=== PATIENT | female | born 1980 | race Caucasian/White ===

== ENCOUNTER 2023-08-20 10:20 | Emergency (ER) | payer OTHER, SELFPAY ==
[2023-08-20 11:02] VITALS: BP 163/97; PULSE 107; RESP 16; TEMP 36.6; O2SAT 100
--- NOTE | 2023-08-20 11:56 | ED.ABDPAIN ---
HPI - Abdominal Pain General Chief Complaint: Abdominal Pain Stated Complaint: Abdominal Pain Source: patient Mode of arrival: ambulatory Limitations: no limitations History of Present Illness HPI narrative: Patient presents for evaluation of abdominal pain. Symptom onset yesterday. She does not provide a descriptive quality or numerical rating to the pain. She reports associated distension and bloating. She had nausea and vomiting yesterday morning but none since that time. She had an episode of diarrhea yesterday another episode today. No blood or mucus in the stool. She has never formally been diagnosed with IBS but suspects that she has it. Monday night she ate some spicy chicken tenders and suspected she would have heartburn thereafter so took pepcid. She denies any fever, chills, urinary symptoms, vaginal bleeding or discharge. She admits to consuming four vodka containing beverages daily. Related Data Home Medications Medication Instructions Recorded Confirmed No Home Medications 08/20/23 Allergies Allergy/AdvReac Type Severity Reaction Status Date / Time No Known Allergies Allergy Verified 08/20/23 11:24 Review of Systems Review of Systems: CONSTITUTIONAL: Denies fever, chills, or sweats. EYES: Denies visual changes, redness, or discharge. ENT: Denies rhinorrhea, congestion, sore throat, or otalgia. CARDIOVASCULAR: Denies chest pain, palpitations, or edema. RESPIRATORY: Denies cough or dyspnea. GASTROINTESTINAL: reports abdominal pain, distention, bloating, diarrhea. Reports nausea and vomiting yesterday but none since that time. GENITOURINARY: Denies dysuria or hematuria. SKIN: Denies rash or itching. MUSCULOSKELETAL: Denies back pain, joint pain, or myalgia. NEUROLOGIC: Denies headache, numbness, dizziness, or weakness. PSYCHIATRIC: Denies anxiety or depression. [facility] Past Medical History Medical History No pertinent past medical history Surgical History Surgical History No pertinent past surgical history Family History Family History Mother Family history non-contributory Social History Social History Smoking status: Current every day smoker Tobacco type: e-cigarettes/vaping Alcohol intake: current Drinks per week: 28 Alcohol use details: vodka Substance use: current Substance use type: marijuana Living arrangements: with family Gender identity (if verbalized by the patient): Female Sexual Orientation (if Verbalized by the Patient): Straight or Heterosexual Spiritual care concerns: No Exam Narrative: GENERAL: Well-appearing, well-nourished, and in no acute distress. HEAD: Normocephalic, atraumatic. EYES: PERRLA and EOMI. ENT: Nares clear, no rhinorrhea or epistaxis. Mucous membranes moist. Oropharynx without tonsillar hypertrophy exudate or other lesions. Bilateral TMs pearly parra nonbulging NECK: Supple. No adenopathy or masses. No carotid bruits or JVD CHEST: Clear to auscultation. No respiratory distress. No wheezes rales or rhonchi HEART: Regular rate and rhythm. No murmur heard. Normal peripheral pulses. ABDOMEN: Soft, distended, diffuse tenderness without rebound or guarding EXTREMITIES: Normal range of motion. No edema. SKIN: Warm, dry, no rash. NEURO: No focal deficits. Alert and oriented x3. PSYCH: Normal mood and affect. Course Course Emergency Course: This is a 42-year-old female who presented for evaluation of abdominal pain, distension, and bloating. Patient would benefit from serum labs and CT imaging. Recommended she be transferred to the hospital for further evaluation. Contacted [facility], her facility of choice, and spoke with nurse practitioner Gallito Martinez.
== END 2023-08-20 11:50 | disposition short-term general hospital (02) ==
PROVIDERS: Emergency Provider Nurse Practitioner
DX: R10.9 Unspecified abdominal pain (principal); F17.290 Nicotine dependence, other tobacco product, uncomplicated; F12.90 Cannabis use, unspecified, uncomplicated
CPT/HCPCS: 81003; 87086; 99213; G0463

== ENCOUNTER 2023-08-20 12:06 | Inpatient (IN) | payer OTHER, SELFPAY ==
--- NOTE | ~2023-08-20 | US_ITS ---
EXAMINATION: US pelvic complete w TV DATE: 08/20/2023 18:19 INDICATION: TOA TECHNIQUE: Multiple transabdominal and endovaginal sonographic images of the pelvis were obtained. COMPARISON: CT abdomen pelvis, same date. FINDINGS: Uterus: 9.0 x 4.7 x 6.5 cm. 7.3 cm pedunculated fibroid projecting off the right side of the uterus. Intramural fibroid in the left uterus measuring 4.8 cm, discrete measurement difficult due to the deg ree of shadowing fibroid measuring up to 6.7 cm in the prior CT. Endometrial complex measures 16 mm. Right Ovary: 3.5 x 2.1 x 3.6, more confidently identified in this scan and than in the prior CT altho ugh there is somewhat limited visualization due to obscuration by the adjacent fibroid . The peripher ally enhancing tubular/serpiginous right adnexal structure seen in the prior CT is less well visualiz ed sonographically. Vascular flow is present. Left Ovary: The left ovary is not well visualized. Cystic 6.9 cm left adnexal/pelvic structure, with an adjacent tubular structure. Both have peripheral enhancement in the prior CT. Vascular flow is pre sent. There is trace free fluid in the pelvis. IMPRESSION: Sonographic and CT findings likely represent tubo-ovarian abscess on the left and tubo-ovarian comple x on the right. Large pedunculated and intramural fibroids. Reviewed, dictated and finalized at location [facility] IMPRESSION: Sonographic and CT findings likely represent tubo-ovarian abscess on the left a nd tubo-ovarian complex on the right. Large pedunculated and intramural fibroids.
--- NOTE | ~2023-08-20 | CT_ITS ---
EXAMINATION: CT abdomen pelvis w con INDICATION: Abdominal bloating and pain TECHNIQUE: Computed tomographic images of the abdomen and pelvis were obtained after the administrati on of 100 cc of Omnipaque 350 intravenous contrast. The dose-length product (DLP) was 272.52 mGy-cm. Automated exposure control and iterative reconstruction technique were employed. COMPARISON: None available FINDINGS: The lung bases are clear. The heart size is normal. There is a small sliding hiatal hernia. The liver, spleen, pancreas, gallbladder, and adrenal glands are normal. The kidneys are unremarkabl e. There is an 8.7 cm fluid collection of the left adnexa. There is fluid within the left fallopian t ube. There is a 4.2 cm fluid collection of the right adnexa with fluid also noted in the right fallop satish tube. There is an approximately 6.2 cm intramural fibroid of the left uterine body. There is a 6. 9 cm pedunculated fibroid of the right uterine fundus. The appendix is normal. IMPRESSION: 1. Findings concerning for bilateral tubo-ovarian abscesses. Recommend [facility] PROF[facility]OR consultation and consider pelvic ultrasound. Reviewed, dictated and finalized at location [facility] IMPRESSION: 1. Findings concerning for bilateral tubo-ovarian abscesses. Recommend BOTANY PROFESSOR cons ultation and consider pelvic ultrasound.
[2023-08-20 12:07] VITALS: BP 140/87; PULSE 104; RESP 18; TEMP 36.6; O2SAT 100
--- NOTE | 2023-08-20 12:24 | ED.ABDPAIN ---
HPI - Abdominal Pain General Chief Complaint: Abdominal Pain Stated Complaint: abdominal pain Time Seen by Provider: 08/20/23 12:12 History of Present Illness HPI narrative: 42-year-old female presented to the emergency department for evaluation of abdominal pain with associated bloating. Patient states symptoms started yesterday. Patient states he did have an episode of diarrhea last night and this morning. Patient reports this did not help with bloating. Patient denies any prior history of abdominal surgeries other than umbilical hernia repair. 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 Patient has no prior history of cirrhosis but states when she had her last labs checked she did have some ?elevated liver enzymes ?. Related Data Home Medications Medication Instructions Recorded Confirmed No Home Medications 08/20/23 08/20/23 Allergies Allergy/AdvReac Type Severity Reaction Status Date / Time No Known Allergies Allergy Verified 08/20/23 12:44 Review of Systems Review of Systems: All systems reviewed & are unremarkable except as noted in HPI and below PMFSH Past Medical History Medical History No pertinent past medical history Surgical History Surgical History No pertinent past surgical history Family History Family History Mother Family history non-contributory Social History Social History Smoking status: Current every day smoker Tobacco type: e-cigarettes/vaping Alcohol intake: current Drinks per week: 21 Alcohol use details: vodka Substance use: current Substance use type: marijuana Do You Feel Safe in your Home?: Yes Lack of Transportation: No Lack of Food: Never True Current Housing: I Have Housing Concerned About Future Housing: No Difficulty Paying Gas/Electric Bills: No Difficulty Paying for Meds: No Currently Unemployed: No Education: Decline to Answer Difficulty w/ Childcare or Family Care: No Living arrangements: with family Gender identity (if verbalized by the patient): Female Sexual Orientation (if Verbalized by the Patient): Straight or Heterosexual Spiritual care concerns: No Exam Narrative: APPEARANCE: Uncomfortable appearing HEAD: normocephalic, atraumatic. EYES: PERRLA/EOMI, conjunctivae clear. NOSE: Normal no drainage NECK: Supple. No adenopathy, no masses. RESPIRATORY: Airway patent, respirations nonlabored. Clear to auscultation bilaterally, no rales, rhonchi, wheezing. CARDIOVASCULAR: Regular rate and rhythm without murmurs rubs or gallops. ABDOMINAL: Distended, normal bowel sounds, minimal tenderness diffuse MUSCULOSKELETAL: Moves all extremities. Strength/ROM intact, No edema, No calf tenderness. NEURO: Alert. Cranial nerves II through XII intact. Grossly intact SKIN: Warm, dry. Normal Color Course Course Emergency Course: 42-year-old female presented emergency department for evaluation of lower abdominal pain. Patient was afebrile but patient does have a leukocytosis of 14.3 with a stable hemoglobin of 12.6. Patient did have some mild elevation of T bili, AST and ALT. UA was concerning for infection, patient was negative for influenza RSV and for COVID. CT scan was concern for bilateral tubo-ovarian abscesses. Blood cultures were ordered and patient was started on scheduled Rocephin Flagyl and doxycycline. Ultrasound was ordered and Dr. Gamble was consulted. Dr. Gamble did accept the patient as primary. Patient and family were updated on the results of the CT scan and plan for antibiotics and admission. All questions and concerns were addressed patient was well-appearing at time of admission. Vital Signs Vital signs: Vital
[2023-08-20 12:57] VITALS: BP 137/97; PULSE 108; RESP 15; O2SAT 100
[2023-08-20 12:59] LABS: Basophils Absolute Auto 0.1 K/mm3 (0.0-0.1); Basophils Percent Auto 0.6 % (0.2-1.2); Eosinophils Absolute Auto 0.1 K/mm3 (0-0.3); Eosinophils Percent Auto 0.5 % (0-4.4); Hematocrit 37.9 % (37.0-47.0); Hemoglobin 12.6 g/dL (12.0-15.0); Immature Granulocyte Percent A 0.7 % (0-0.5); Lymphocytes Absolute Auto 1.23 K/mm3 (0.9-3.2); Lymphocytes Percent Auto 8.6 % (18.3-44.2); Mean Corpuscular HGB Conc 33.2 g/dl (32-36); Mean Corpuscular Hemoglobin 33.2 pg (26-34); Mean Platelet Volume 8.9 fl (7.4-10.4); Monocytes Percent Auto 6.7 % (2.6-8.5); Neutrophils Absolute Auto 11.9 K/mm3 (1.3-6.7); Neutrophils Percent Auto 82.9 % (45.5-73.1); Platelet Count Result 245 k/mm3 (150-375); Red Blood Count 3.79 M/mm3 (4.2-5.4); Red Cell Distribution Width 13.9 % (11.5-14.5); White Blood Count 14.3 K/mm3 (4.5-10.0)
[2023-08-20 13:08] LABS: Lactic Acid Reflex 1.6 mmol/L (0.7-2.0)
[2023-08-20 13:09] LABS: Ammonia < 9 umol/L (9-30); Prothrombin Time 13.7 Seconds (11.1-14.7)
[2023-08-20 13:10] LABS: Alanine Aminotransferase 56 U/L (6-35); Albumin Level 4.3 g/dL (3.5-5.1); Alkaline Phosphatase 118 U/L (38-126); Anion Gap 10 mmol/L (8-16); Aspartate Amino Transferase 72 U/L (14-36); Bilirubin,Total 1.6 mg/dL (0.2-1.3); Blood Urea Nitrogen 8 mg/dL (7-17); Calcium 9.4 mg/dL (8.4-10.2); Carbon Dioxide 25 mmol/L (22-30); Chloride 96 mmol/L (98-107); Estimated CRCL calculation 89 ml/min; Estimated Glomerular Filt Rate > 60; Glucose 139 mg/dL (65-110); Lipase 53 U/L (23-300); Potassium 3.6 mmol/L (3.4-5.0); Sodium 131 mmol/L (137-145)
[2023-08-20 13:11] LABS: Bacteria Urine 4+ /hpf; Non Pathogenic Casts 0-2; RBC Urine 21-50 /hpf (0-2); Squamous Epithelial Cell Urine Moderate /hpf (Few)
[2023-08-20 13:17] LABS: Appearance Urine Cloudy (Clear); Bilirubin Urine 2+ (Negative); Blood Urine 2+ (Negative); Color Urine Orange (Yellow); Glucose Urine UA Negative (Negative); Ketones Urine Negative (Negative); Leukocyte Esterase Ur 1+ LEU/UL (Negative); Nitrate Urine Positive (Negative); Protein Urine 2+ mg/dL (Negative); Specific Grav Ur 1.033 (1.001-1.035)
[2023-08-20 13:22] LABS: Add Urine Microscopic? YES
[2023-08-20 13:40] LABS: Influenza A QL RT-PCR Negative (Negative); Influenza B QL RT-PCR Negative (Negative); RSV RNA, RT-PCR Negative (Negative); SARS-CoV-2 RNA PCR Negative (Negative)
[2023-08-20] MEDS: ONDANSETRON INJ 4 MG/2 ML VIAL IV PUSH ×2 (15:08→21:58)
[2023-08-20] MEDS: HYDROmorphone HCL INJ (*CRX) 1 MG/ML SYR 0.5 MG IV PUSH ×3 (15:09→23:04)
[2023-08-20] MEDS: DOXYCYCLINE 100 MG/NS 100 ML 100 MG/100 ML BAG IVPB (15:16)
[2023-08-20 15:17] VITALS: BP 127/89; PULSE 103; RESP 13; O2SAT 100
[2023-08-20] MEDS: metroNIDAZOLE 500 MG/ISO 100ML 500 MG/100 ML BAG 100 MG IVPB ×2 (15:24→21:58)
[2023-08-20 16:00] VITALS: BP 132/84; PULSE 90; RESP 16; O2SAT 9
[2023-08-20 16:10] VITALS: BMI 21.9
--- NOTE | 2023-08-20 16:10 | ADMGEN ---
This patient, Mellissa Diehl, was admitted to 3 [facility] Surg Room 310-01 @ 1610. Patient/family oriented to hospital policies and general routines including ID bracelet, bed and alarms, visiting hours, pain management, procedures, bathroom and other care routines, personal items, smoking policy, room service/diet, and visiting hours. Information on how to activate the Rapid Response Team has been discussed. Patient/Family are encouraged to report perceived risks to care and to ask questions if they do not understand what they are told or what they should do.
[2023-08-20 18:18] VITALS: BP 117/73; PULSE 107; RESP 16; TEMP 36.4; O2SAT 99
[2023-08-20 20:29] VITALS: BP 126/79; PULSE 94; RESP 16; TEMP 36.5; O2SAT 100
[2023-08-21] VITALS (14 sets, daily range): BP systolic 115–151; BP diastolic 71–95; PULSE 89–125; RESP 12–20; TEMP 35.6–36.8; O2SAT 95–100
[2023-08-21] MEDS: ONDANSETRON INJ 4 MG/2 ML VIAL IV PUSH ×2 (03:43→17:40)
[2023-08-21] MEDS: HYDROmorphone HCL INJ (*CRX) 1 MG/ML SYR 0.5 MG IV PUSH ×9 (03:44→18:10)
[2023-08-21] MEDS: DOXYCYCLINE 100 MG/NS 100 ML 100 MG/100 ML BAG IVPB ×2 (03:45→15:25)
--- NOTE | 2023-08-21 08:18 | PM.IMHP ---
H&P: HPI History of Present Illness Date/Time: 08/21/23 08:18 Chief Complaint: Abdominal and pelvic pain Narrative: this patient is a 42-year-old female who presented emergency department with abdominal and pelvic pain. The pain began 3 days ago and progressively got worse. She had some mild elevated body temperature. She presented the emergency department. She was evaluated. Imaging showed bilateral tubo-ovarian abscesses. She continues to have pelvic pain. Discussed treatment options to the patient. Discussed medications, drain placement, surgery. Patient is considering her treatment options. She will likely choose the diagnostic laparoscopy with draining of tubo-ovarian abscesses. The procedure was explained to the patient in great detail. we spent over 40 minutes [id number]. More than 50% was counseling. Made decision to perform surgery. Patient understands the procedure. She understands the risk. She understands that injuries may occur that result in hospitalization, more surgery, and severe illness. She understands risk of hemorrhage and infection. To proceed with Laparoscopic drainage of tubo-ovarian abscess. She understands risks, benefits, and alternatives. She has completed informed consent process and is ready to proceed Review of Systems Review of Systems: All systems reviewed & are unremarkable except as noted in HPI and below Constitutional: Constitutional: Denies chills, Denies fatigue, Denies fever(s) and Denies weakness Eyes: Eyes: Denies blurry vision, Denies change in vision, Denies loss of peripheral vision, Denies loss of vision, Denies other visual disturbances and Denies eye pain ENT: Denies vertigo, Denies dizziness, Denies hearing loss, Denies mouth pain, Denies nasal obstruction, Denies neck mass and Denies neck pain Cardiovascular: Cardiovascular: Denies chest pain, Denies diaphoresis, Denies syncope, Denies leg edema and Denies dyspnea Respiratory: Respiratory: Denies chest congestion, Denies cough, Denies hemoptysis, Denies dyspnea and Denies wheezing Gastrointestinal: Gastrointestinal: Denies abdominal pain, Denies constipation, Denies diarrhea, Denies nausea and Denies vomiting Genitourinary: Genitourinary: Denies hematuria, Denies change in libido, Denies nocturia, Denies genital lesions, Denies flank pain and Denies urinary urgency Musculoskeletal: Musculoskeletal: Denies abnormal gait, Denies back pain, Denies myalgias, Denies arthralgias, Denies joint swelling, Denies muscle weakness and Denies neck pain Integumentary/Breasts: Skin/Breast: Denies swelling, Denies breast pain, Denies breast mass, Denies dry skin, Denies nipple discharge, Denies unusual bruising and Denies jaundice Neurologic: Denies Neuro-related abnormal movements, Denies Abnormal speech present, Denies abnormal gait, Denies behavioral changes, Denies confusion, Denies vertigo, Denies dizziness, Denies syncope, Denies loss of vision, Denies memory loss, Denies convulsions and Denies weakness Psychiatric: Psychiatric: Denies abnormal sleep pattern, Denies behavioral changes, Denies change in libido, Denies confusion, Denies depression, Denies anhedonia and Denies memory loss Endocrine: Endocrine: Reports no additional endocrine complaints, Denies change in libido and Denies fatigue Hematologic/Lymphatic: Hematologic/Lymphatic: Reports no additional hematologic/lymphatic complaints Allergic/Immunologic: Allergic/Immunologic: Reports no additional allergic/immunologic complaints and Denies wheezing [facility] Past Medical History Medical History No pertinent past medical history Surgical History Surgical History No pertinent past surgical history Family History Family History Mother Family history non-contributory Social History Social
[2023-08-21] MEDS: metroNIDAZOLE 500 MG/ISO 100ML 500 MG/100 ML BAG 100 MG IVPB ×2 (09:48→20:56)
--- NOTE | 2023-08-21 15:16 | WPDANESEPPF ---
Anes - Initial Pre Proc Eval Procedure: Operation Date: 08/21/23 17:00 Proposed Procedures p Laparoscopic Drainage of Pelvic Abscess - Selma Gamble MD Date/Time: 08/21/23 15:16 Surgeon: Selma Gamble MD Pre Op Diagnosis: Tubo Ovarian Abscess Patient Data Age: 42 Gender: F Height: 1.7 m Weight: 63.5 kg Last Vital Signs Temp 35.7 C L 08/21/23 14:00 Pulse 89 08/21/23 14:00 Resp 16 08/21/23 14:00 BP 115/72 08/21/23 14:00 Pulse Ox 100 08/21/23 14:00 O2 Del Method Room Air 08/21/23 09:12 Allergies Allergy/AdvReac Type Severity Reaction Status Date / Time No Known Allergies Allergy Verified 08/20/23 12:44 Home Medications Medication Instructions Recorded Confirmed Type No Home Medications 08/20/23 08/20/23 History Patient hx anesthesia problems: none Family hx anesthesia problems: none Results Review: All pre-operative results and documents have been reviewed as part of the pre-operative evaluation. [facility] Past Medical History Medical History No pertinent past medical history Surgical History Surgical History No pertinent past surgical history Family History Family History Mother Family history non-contributory Social History Social History Smoking status: Current every day smoker Tobacco type: e-cigarettes/vaping Alcohol intake: current Drinks per week: 21 Alcohol use details: vodka Substance use: current Substance use type: marijuana Do You Feel Safe in your Home?: Yes Lack of Transportation: No Lack of Food: Never True Current Housing: I Have Housing Concerned About Future Housing: No Difficulty Paying Gas/Electric Bills: No Difficulty Paying for Meds: No Currently Unemployed: No Education: Decline to Answer Difficulty w/ Childcare or Family Care: No Living arrangements: with family Gender identity (if verbalized by the patient): Female Sexual Orientation (if Verbalized by the Patient): Straight or Heterosexual Spiritual care concerns: No Anes - Eval Final PreProcedure Day of Procedure 08/21/23 15:16 Patient weight: normal Heart: regular rate and rhythm Lungs: clear to auscultation Airway: Mallampati scale class II Neurological: alert and oriented Last oral intake: >/= 8 hours ASA classification: II Emergent: no Anesthetic plan: proceed Anesthesia type and monitoring: general ETT and standard monitoring Results Review: All pre-operative results and documents have been reviewed as part of the pre-operative evaluation. Informed Consent: The patient's anesthetic plan and its attendant risks and benefits were discussed with the patient/family/POA. Questions were solicited and answers provided to the satisfaction of the patient/family/POA.
[2023-08-21] MEDS: LACTATED RINGERS 1,000 ML 30 ML IV CONT ×2 (15:20→17:26)
--- NOTE | 2023-08-21 15:21 | WPDHPUPDATE1 ---
History and Physical Update Update Date/Time: 08/21/23 15:21 History and Physical has been reviewed, including an updated exam of the patient. There are NO changes in the patient's condition. Risks, benefits, and alternatives have been discussed and questions answered. Patient agrees to proceed with procedure.
[2023-08-21] MEDS: CELLULOSE OXIDIZED 2 x 14 INCH 1 PKT XX (16:52)
--- NOTE | 2023-08-21 17:39 | P.OP_ITS ---
Procedure Note - Detailed Date of Procedure 08/21/23 Pre-op Diagnosis bilateral Tubo Ovarian Abscess, uterine myoma Post-op Diagnosis Same Procedure Performed Diagnostic laparoscopy, open laparotomy bilateral salpingectomy and myomectomy Surgeon Selma Gamble MD Anesthesia General Indications Pelvic pain , tubo-ovarian abscesses Findings large pedunculated uterine fibroid emanating from the fundus, 7 cm left tubo- ovarian abscess, 30 cm x 5 cm right tubo-ovarian abscess. Description of Procedure The patient was taken to the operating room. She was prepped and draped in the dorsal lithotomy position after induction general anesthesia. A 5 mm incision was made with a scalpel on the abdominal skin in the left upper quadrant of the abdomen. A 5 mm trocar was inserted into the intra-abdominal cavity under direct visualization the scope. In the same fashion a 5 mm left lower quadrant trocar was inserted and a 5 mm infraumbilical trocar was inserted. the above findings were noted upon visualization of this. Abscesses could not be seen initially due to their position low in the pelvis. Pelvis could not be visualized with the fibroid positions were was. The uterus was very immobile due to the fibroid and the abscesses attempt was made to remove the fibroid. The stalk the fibroid was cauterized and transected with LigaSure cautery. The cut surface of the uterus began to bleed. Several minutes were spent trying to stop the bleeding. They are worse open sinuses on the surface of the uterus that were difficult to take care of. After several minutes to using unipolar cautery without much success we agreed open the patient. Laparotomy was performed. Pneumoperitoneum was reduced and the trocars removed. Skin incision was made 3 cm above the pubic symphysis. Was a transverse incis ion using scalp on the skin. It was carried down low to the fascia with the knife. Fascia was incised at the midline. The fascial incision was extended lateral with Naranjo scissors. The rectus muscles were . Peritoneal cavity was entered bluntly. The bowel was packed in the upper abdomen and a bowel for tractor was inserted. blunt dissection was used to isolate the bilateral fallopian tubes that were removed using LigaSure cautery. Multiple [id number] sutures were used on the uterus to make it hemostatic. Uterus was returned to the abdomen. The fibroid was removed along with fallopian tube since the pathology department. The pelvis was irrigated. Fascia was closed with 0 Vicryl running fashion. Skin was closed with Insorb stapler.. The patient's incisions were covered with Dermabond. She was taken recovery room in stable condition. Sponge lap and needle counts were correct x2. Estimated Blood Loss 400 Urine Output 0 Pathology Yes Complications No immediate complications Condition Stable Disposition Floor
[2023-08-21] MEDS: HYDROmorphone HCL INJ (*CRX) 1 MG/ML SYR IV PUSH ×2 (20:49→23:32)
[2023-08-21] MEDS: PROMETHAZINE HCL 25 MG/ML AMPUL 12.5 MG IV PUSH (20:49)
[2023-08-22] MEDS: HYDROcodone/acetaminophen (*CRX) 10-325 MG TABLET 1 TAB PO ×4 (00:18→21:54)
[2023-08-22] MEDS: DOXYCYCLINE 100 MG/NS 100 ML 100 MG/100 ML BAG IVPB ×2 (03:31→15:19)
[2023-08-22 05:55] VITALS: BP 141/75; PULSE 92; RESP 16; TEMP 36.6; O2SAT 92
[2023-08-22] MEDS: SIMETHICONE 80 MG TAB.CHEW PO ×3 (08:09→17:03)
[2023-08-22] MEDS: HYDROmorphone HCL INJ (*CRX) 1 MG/ML SYR IV PUSH ×2 (08:09→13:47)
[2023-08-22] MEDS: metroNIDAZOLE 500 MG/ISO 100ML 500 MG/100 ML BAG 100 MG IVPB ×2 (09:44→21:55)
--- NOTE | 2023-08-22 10:53 | PM.GYNPNOP ---
POCKET AND PULLEY MACHINE OPERATOR - A/P Assessment and plan (1) Tubal ovarian abscess: Code(s): N70.93 - Salpingitis and oophoritis, unspecified Status: Acute (2) Pelvic inflammatory disease: Code(s): N73.9 - Female pelvic inflammatory disease, unspecified Status: Acute Plan improved overall, incisional pain but improved pelvic pain and malaise. Patient appears very well. Postoperative Procedures: Procedures Operation Date: 08/21/23 17:00 Actual Procedure Side Surgeon p Diagnostic Laparoscopy, Open Bilateral Salpingectomy, Myomectomy Not Applicable Selma Gamble MD Postoperative day: 1 Postoperative status: doing well Postoperative plan: see orders Time Spent With Patient Time: Total time spent is greater than 50% in coordination of care (as documented) at patient's floor/unit and/or counseling patient: Time with patient: 15 - 25 minutes POCKET AND PULLEY MACHINE OPERATOR- PN:Kang Post-Op Subjective Date/time seen: 08/22/23 10:53 Subjective: patient reports feeling better, patient has no complaints and pain is well controlled Exam Const: General: healthy appearing, comfortable and no acute distress Resp: Auscultation: clear to auscultation bilaterally, no rales, no rhonchi and no wheezes Cardio: Rate: regular rate Heart sounds: no click, no murmurs and no rubs GI: Inspection: non-distended Auscultation: normal bowel sounds Extrem: General: normal to inspection, no pedal edema and no calf tenderness POCKET AND PULLEY MACHINE OPERATOR - PN: Obj Data Vital Signs Vital Signs: Vital Signs - 24 hr 08/21/23 14:00 08/21/23 15:25 08/21/23 17:26 Temperature 96.2 F L 98.3 F 97.4 F L Pulse Rate 89 93 97 Respiratory Rate 16 16 18 Blood Pressure 115/72 136/71 151/95 H Pulse Oximetry 100 100 100 Oxygen Delivery Room Air Simple Face Mask Oxygen Flow Rate 8 08/21/23 17:40 08/21/23 17:45 08/21/23 17:55 Temperature Pulse Rate 95 97 Respiratory Rate 12 14 Blood Pressure 138/76 131/86 Pulse Oximetry 100 96 Oxygen Delivery Simple Face Mask Room Air Room Air Oxygen Flow Rate 8 08/21/23 18:10 08/21/23 18:25 08/21/23 18:36 Temperature Pulse Rate 94 95 95 Respiratory Rate 12 12 12 Blood Pressure 134/81 132/77 123/86 Pulse Oximetry 99 95 96 Oxygen Delivery Room Air Room Air Room Air Oxygen Flow Rate 08/21/23 18:45 08/21/23 19:04 08/21/23 22:00 Temperature 96.0 F L 97.7 F Pulse Rate 122 H 125 H 96 Respiratory Rate 20 20 20 Blood Pressure 132/95 H 121/91 H 121/82 Pulse Oximetry 99 100 100 Oxygen Delivery Oxygen Flow Rate 08/21/23 23:57 08/21/23 20:00 08/22/23 05:55 Temperature 97.8 F 97.8 F Pulse Rate 105 H 92 Respiratory Rate 20 16 Blood Pressure 142/86 H 141/75 H Pulse Oximetry 100 100 92 Oxygen Delivery Room Air Oxygen Flow Rate Intake/Output Intake/Output: Intake & Output 08/19/23 08/20/23 08/21/23 08/22/23 23:59 23:59 23:59 23:59 Intake Total 650 950 400 Output Total 700 290 325 Balance -50 660 75 Meds/Results Medications: Active Medications Generic Name Dose Route Start Last Admin Trade Name Freq PRN Reason Stop Dose Admin Hydrocodone Bitart/Acetaminophen 1 tab 08/21/23 18:37 Hydrocodone/Acetaminophen (*Crx) 5-325 Mg Tablet PO Q3H PRN Pain Rated 5 or Less Hydrocodone Bitart/Acetaminophen 1 tab 08/21/23 18:37 08/22/23 09:18 Hydrocodone/Acetaminophen (*Crx) 10-325 Mg Tablet PO 1 tab Q3H PRN Administration Pain Rated 6 or Greater Hydromorphone HCl 1 mg 08/21/23 20:41 08/22/23 08:09 Hydromorphone Hcl Inj (*Crx) 1 Mg/Ml Syr IV PUSH 1 mg Q2H PRN Administration Pain Rated 7-10 Ceftriaxone Sodium 1 gm in 50 mls @ 100 mls/hr 08/21/23 09:00 08/22/23 08:52 Rocephin 1 Gm/Ns 50 Ml IVPB 100 mls/hr DAILY SU Administration Metronidazole 500 mg in 100 mls @ 100 mls/hr 08/20/23 22:00 08/22/23 09:44 Flagyl 500 Mg/Iso Soln 100 Ml IVPB 100 mls/hr Q12H SU Administration Doxycycline Hyclate 100 mg in 100 mls @ 100 mls/hr
--- NOTE | 2023-08-22 11:09 | WPDANESPN ---
Anes - Prog Note Post-Op Date/Time: 08/22/23 11:09 Cardiovascular status: normal Respiratory status: normal Airway patency: baseline Mental status: baseline Post-Op hydration status: normal Vital Signs: Last Vital Signs Temp 36.6 C 08/22/23 05:55 Pulse 92 08/22/23 05:55 Resp 16 08/22/23 05:55 BP 141/75 H 08/22/23 05:55 Pulse Ox 92 08/22/23 05:55 O2 Del Method Room Air 08/21/23 20:00 O2 Flow Rate 8 08/21/23 17:40 Pain Score (VAS): 0/10 I/O: Intake & Output 08/21/23 08/22/23 08/22/23 23:59 07:59 15:59 Intake Total 600 400 Output Total 70 325 Balance 530 75 Laboratory Tests 08/20/23 12:51 08/20/23 12:51 Microbiology 08/20/23 14:56 Blood Blood Culture - Preliminary 08/20/23 14:54 Blood Blood Culture - Preliminary Post-procedural complaints: nausea (resolved) Patient Feedback: Patient satisfied with anesthetic care.
[2023-08-22 14:00] VITALS: BP 128/67; PULSE 103; RESP 16; TEMP 36.6; O2SAT 100
[2023-08-22 20:00] VITALS: PULSE 96; RESP 16; O2SAT 92
[2023-08-22 21:08] VITALS: BP 125/78; PULSE 96; RESP 16; TEMP 36.2; O2SAT 92
[2023-08-23] MEDS: DOXYCYCLINE 100 MG/NS 100 ML 100 MG/100 ML BAG 50 MG IVPB (03:34)
[2023-08-23] MEDS: HYDROcodone/acetaminophen (*CRX) 10-325 MG TABLET 1 TAB PO (03:34)
[2023-08-23 06:24] VITALS: BP 118/67; PULSE 95; RESP 18; TEMP 36.7; O2SAT 99
[2023-08-23 08:00] VITALS: PULSE 95; RESP 18; O2SAT 99
[2023-08-23] MEDS: SIMETHICONE 80 MG TAB.CHEW PO (09:18)
[2023-08-23] MEDS: HYDROcodone/acetaminophen (*CRX) 5-325 MG TABLET 1 TAB PO (09:18)
[2023-08-23] MEDS: metroNIDAZOLE 500 MG TABLET PO (10:38)
[2023-08-23] MEDS: DOXYCYCLINE HYCLATE 100 MG TABLET PO (10:38)
--- NOTE | 2023-08-23 11:26 | PM.GYNPNOP ---
SAMPLE TAKER OPERATOR - A/P Assessment and plan (1) Pelvic inflammatory disease: Code(s): N73.9 - Female pelvic inflammatory disease, unspecified Status: Acute (2) Postoperative abdominal pain: Code(s): R10.9 - Unspecified abdominal pain; G89.18 - Other acute postprocedural pain Status: Acute Assessment and Plan: pelvic inflammatory disease, tubo-ovarian abscess, treated several days with IV antibiotics, infection appears to be resolving by clinical signs and symptoms. To discharge on oral antibiotics. Postoperative Procedures: Procedures Operation Date: 08/21/23 17:00 Actual Procedure Side Surgeon p Diagnostic Laparoscopy, Open Bilateral Salpingectomy, Myomectomy Not Applicable Selma Gamble MD Time Spent With Patient Time: Total time spent is greater than 50% in coordination of care (as documented) at patient's floor/unit and/or counseling patient: Time with patient: less than 15 minutes SAMPLE TAKER OPERATOR- PN:Subj Post-Op Subjective Date/time seen: 08/23/23 11:26 Interval history: Incisional pain, consistent with normal low-transverse incision pain. Denies fever chills. No vaginal bleeding. No vaginal discharge. Exam Const: General: cooperative, healthy appearing, comfortable and no acute distress Orientation/consciousness: oriented to person, oriented to place and oriented to time HENMT: Head: normal to inspection Ears: external ears normal Face/Nose/Sinus: Normal external nose present and normal facial exam Face and sinus: normal facial exam Eyes: General: appearance normal, both eyes and all related structures Neck: Neck: normal visual inspection, trachea midline and supple Resp: Auscultation: clear to auscultation bilaterally, no crackles, no rales, no rhonchi and no wheezes Cardio: Rate: regular rate Rhythm: regular rhythm Heart sounds: no click, no murmurs and no rubs GI: GI Palp: No abdominal tenderness, No Soft to palpation, No Tenderness to palpation present (GI) and No Palpable mass present Auscultation: normal bowel sounds Other: Incisional tenderness Skin: General skin exam: normal color and no rashes or lesions noted Neuro: General: oriented to person, oriented to place and oriented to time Extrem: General: normal to inspection, no joint enlargement, no clubbing, cyanosis or edema, no pedal edema and no calf tenderness Psych: Appearance: grossly normal Mental Status: mental status grossly normal Speech and movement: Normal speech and movement present SAMPLE TAKER OPERATOR - PN: Obj Data Vital Signs Vital Signs: Vital Signs - 24 hr 08/22/23 14:00 08/22/23 21:08 08/22/23 20:00 Temperature 97.9 F 97.2 F L Pulse Rate 103 H 96 96 Respiratory Rate 16 16 16 Blood Pressure 128/67 125/78 Pulse Oximetry 100 92 92 Oxygen Delivery Room Air 08/23/23 06:24 Temperature 98.1 F Pulse Rate 95 Respiratory Rate 18 Blood Pressure 118/67 Pulse Oximetry 99 Oxygen Delivery Intake/Output Intake/Output: Intake & Output 08/20/23 08/21/23 08/22/23 08/23/23 23:59 23:59 23:59 23:59 Intake Total 877 770 8982 100 Output Total 700 290 745 Balance -50 660 725 100 Meds/Results Medications: Active Medications Generic Name Dose Route Start Last Admin Trade Name Freq PRN Reason Stop Dose Admin Hydrocodone Bitart/Acetaminophen 1 tab 08/21/23 18:37 08/23/23 09:18 Hydrocodone/Acetaminophen (*Crx) 5-325 Mg Tablet PO 1 tab Q3H PRN Administration Pain Rated 5 or Less Hydrocodone Bitart/Acetaminophen 1 tab 08/21/23 18:37 08/23/23 03:34 Hydrocodone/Acetaminophen (*Crx) 10-325 Mg Tablet PO 1 tab Q3H PRN Administration Pain Rated 6 or Greater Doxycycline Hyclate 100 mg 08/23/23 11:00 08/23/23 10:38 Doxycycline Hyclate 100 Mg Tablet PO 09/02/23 21:01 100 mg Q12HR SU Administration Hydromorphone HCl 1 mg 08/21/23 20:41 08/22/23 13:47 Hydromorphone Hcl Inj (*Crx) 1 Mg/Ml Syr IV PUSH 1 mg Q2H PRN Administration Pain Rated 7-10 Ibupr
--- NOTE | 2023-08-23 11:31 | PM.DS ---
DS: Admitting Diagnosis Discharge Date July 23, 2023 Admitting Diagnosis pelvic inflammatory disease, tubo-ovarian abscess DS: Discharge Diagnosis Discharge Diagnosis (1) Pelvic inflammatory disease: Code(s): N73.9 - Female pelvic inflammatory disease, unspecified Status: Acute (2) Tubal ovarian abscess: Code(s): N70.93 - Salpingitis and oophoritis, unspecified Status: Acute (3) Postoperative abdominal pain: Code(s): R10.9 - Unspecified abdominal pain; G89.18 - Other acute postprocedural pain Status: Acute DS: Summary Hospital Course Hospital Course: 42-year-old female who was admitted for tubo-ovarian abscess and pelvic inflammatory disease. She had an open surgery for removal of the tubo-ovarian abscess. She also had myomectomy that procedure. She has received IV antibiotics since admission. She has now been treated for 4 days with IV antibiotics. Oral antibiotics been started. We will discharge the patient. She has reasonable postoperative pain. She is passing flatus and tolerating p.o.. She was ambulating tolerating p.o. passing flatus at appropriate times during her stay. Her pain was managed well. Time Spent with Patient Time attestation: Total time spent providing and/or coordinating discharge services: DS: Data Data Completed and Pending Completed studies during hospitalization: Pending at discharge 08/21/23 16:39 Surgical [PTH] Routine Surgical [PTH] Routine Labs on day of discharge: Preliminary micro results at discharge 08/20/23 14:56 Blood Culture - Preliminary Blood 08/20/23 14:54 Blood Culture - Preliminary Blood Discharge Plan Discharge Discharging Clinician: Selma Gamble Patient Disposition: Home, Self-Care Activity: pelvic rest Diet: regular Patient Instructions: Antibiotic Form, How to Stop Smoking (DC) Stand Alone Forms: General Discharge Information Follow-up/Referrals: Selma Gamble MD [Physician] - Discharge Medications: New hydrocodone-acetaminophen 5-325 mg Tablet 2 tablet PO Q3H PRN (Reason: Pain Rated 5 Or Less) Qty: 20 0RF doxycycline hyclate 100 mg Tablet 100 mg PO Q12HR Qty: 28 0RF metronidazole 500 mg Tablet 500 mg PO Q12HR Qty: 28 0RF No Action No Home Medications Date of admission: 08/21/23 09:45 Primary Care Provider: PHYSICIAN NOT ON STAFF,NONSTAFF Admitting Provider: Selma Gamble Attending physician on admission: Selma Gamble Condition: Serious
== END 2023-08-23 12:50 | disposition home or self-care (01) | DRG 743 ==
LOC: ANHED 13:06 → ANH3MEDSUR 15:39
PROVIDERS: Admitting Provider Obstetrics & Gynecology; Emergency Provider Emergency Medicine; Visit Provider Obstetrics & Gynecology
PROC: 0UT70ZZ Resection of Bilateral Fallopian Tubes, Open Approach (ICD-10-PCS; CPT 49320; principal; 2023-08-21 17:00)
DX: N70.03 Acute salpingitis and oophoritis (principal); D25.9 Leiomyoma of uterus, unspecified; F17.290 Nicotine dependence, other tobacco product, uncomplicated; Z20.822 Contact with and (suspected) exposure to COVID-19
CPT/HCPCS: 36415; 74177; 76830; 76856; 80053; 81001; 81003; 81025; 82140; 83605; 83690; 85025; 85610; 85730; 87040; 87086; 87637; 88302; 88305; 96365; 96367; 96375; 99213; 99285; A9270; C1713; G0463; J0696; J1100; J1170; J1836; J2250; J2405; J2550; J2704; J3010; J7120; Q9967

== ENCOUNTER 2025-04-08 07:56 | Emergency (ER) | payer OTHER, SELFPAY ==
[2025-04-08] VITALS (13 sets, daily range): BP systolic 127–140; BP diastolic 84–92; PULSE 61–94; RESP 9–19; TEMP 36.4; O2SAT 97–100
--- NOTE | ~2025-04-08 | US_ITS ---
EXAMINATION: US pelvic complete w TV DATE: 04/08/2025 12:14 INDICATION: Painful right ovarian mass TECHNIQUE: Multiple transabdominal and endovaginal sonographic images of the pelvis were obtained. COMPARISON: CT dated 04/08/[address] and ultrasound dated 08/18/23 FINDINGS: The uterus measures 8.2 x 6.4 x 8.8 cm. The endometrial complex measures 7 mm in thickness. 5.9 x 5.6 x 5.2 cm heterogeneously hypoechoic uterine fibroid. There is additional approximately 2.1 x 1.7 cm fibroid at the lower uterine segment. The right ovary measures 6.5 x 5.8 x 4.6 cm. There is a 6.4 x 4.5 x 4.0 cm complex right ovarian cyst with small amount of vascular flow along one of a few thin linear internal septations within the cystic lesion. No solid nodular soft tissue component identified on the current ultrasound or the CT from 2 hours prior. .The left ovary measures 3.0 x 2.6 x 1.6 cm. Vascular flow identified in the ovaries on color Doppler. There is no free fluid in the pelvis. IMPRESSION: 1. A couple uterine fibroids the larger measuring 5.9 cm. 2. 6.4 cm mildly complex right ovarian cyst with a a few thin internal septations which suggests possible neoplasm but without solid nodular soft tissue component on the current ultrasound or prior CT which favors benign over malignant neoplasm. Alternatively this could represent dilated residual fallo pian tube remnant post reported prior bilateral salpingectomies for tubo-ovarian abscess. Recommend gynecologic consultation. Reviewed, dictated and finalized at location A. IMPRESSION: 1. A couple uterine fibroids the larger measuring 5.9 cm. 2. 6.4 cm mildly complex right ovarian cyst with a a few thin internal septatio ns which suggests possible neoplasm but without solid nodular soft tissue compo nent on the current ultrasound or prior CT which favors benign over malignant n eoplasm. Alternatively this could represent dilated residual fallopian tube rem nant post reported prior bilateral salpingectomies for tubo-ovarian abscess. Re commend gynecologic consultation.
--- NOTE | ~2025-04-08 | CT_ITS ---
EXAMINATION: CT abdomen pelvis w con DATE: 04/08/2025 09:17 INDICATION: Right lower quadrant abdominal pain. TECHNIQUE: Computed tomography (CT) of the abdomen and pelvis was performed with 100 mL Omnipaque 350 intravenous contrast. Automated exposure control and iterative reconstruction technique were employed. The dose-length product was 230.52 mGy-cm. COMPARISON: CT abdomen and pelvis 08/20/2023 FINDINGS: The visualized portions of the lung bases demonstrate minimal atelectasis on the left. No pleural effusion. The heart size is normal. No pericardial effusion. There is an 11 mm hypodense mass at the junction of segments JERI and VIII of the liver. The gallbladder, spleen, pancreas, adrenal glands, and kidneys are normal. There are fibroids in the uterus measuring up to 7.0 cm There is a 6.0 cm cyst in right ovary. There are no dilated loops of bowel. The appendix is not visualized. There are no pathologically enlarged lymph nodes. There is trace ascites. The bones are unremarkable. IMPRESSION: 1. 6.0 cm cyst in right ovary. The differential diagnosis includes follicular cyst, tubo-ovarian abscess, and less likely benign neoplasm. Consider pelvis ultrasound. 2. Uterine fibroids. 3. New 11 mm liver mass, which may be benign or malignant. Abdomen MRI without and with contrast is recommended. Reviewed, dictated and finalized at location E. IMPRESSION: 1. 6.0 cm cyst in right ovary. The differential diagnosis includes follicular c yst, tubo-ovarian abscess, and less likely benign neoplasm. Consider pelvis ult rasound. 2. Uterine fibroids. 3. New 11 mm liver mass, which may be benign or malignant. Abdomen MRI without and with contrast is recommended.
--- OUTSIDE RECORDS SUMMARY | 2025-04-08 08:12 | XMS_ITS | Clinical Summary ---
Author Organization [facility] Address [address] [place] [address] Care Team Providers Care Gear Design Engineer Name Role Phone Joelle Misty JAY Primary Care Provider [phone] Allergies No known active allergies Medications No known medications Active Problems Problem Noted Date Diagnosed Date Elevated blood-pressure read ing without diagnosis of hypertension 11/28/2019 Immunizations Immunization Administration Dates Next Due Tdap (Generic) 11/27/2014 Family History Medical History Relation Comments Heart Attack Father Heart Disease Father Hypertension Father Heart Attack Paternal Aunt CHF Paternal Grandmother Heart Disease Paternal Grandmother Relation Status Comments Father Paternal Aunt Paternal Grandmother Social History Tobacco Use Types Packs/Day Years Used Date Smoking Tobacco: Former Cigarettes 1 15 0 11/27/1997 - 11/27/2012 Smokeless Tobacco: Never Alcohol Use Standard Drinks/Week Comments Yes 9 (1 standard drink = 0.6 oz pur e alcohol) PHQ-2 Answer Date Recorded PHQ-2 Score 0 11/28/2019 Comments Unknown Sex and Gender Information Value Date Recorded Sex Assigned at Not on file Legal Sex Female 7:59 PM CDT Gender Identity Not on file Sexual Orientation Not on file Last Filed Vital Signs Vital Sign Reading Time Taken Comments Blood Pressure 134/84 11/28/2019 10:28 AM CDT Pulse 83 11/28/2019 9:37 AM CDT Temperature 36.5 C (97.7 F) 11/28/2019 9:37 AM CDT Respiratory Rate 14 11/28/2019 9:37 AM CDT Oxygen Saturation 99% 11/28/2019 9:37 AM CDT Inhaled Oxygen Concentration - - Weight 57.2 kg (126 lb) 11/28/2019 9:37 AM CDT Height 170.2 cm (5' 7) 11/28/2019 9:37 AM CDT Body Mass Index 19.73 11/28/2019 9:37 AM CDT Plan of Treatment Health Maintenance Due Date Last Done Comments Cervical Cancer Screening Pa p Smear (Age 30 to 64) Every 3 Years 1981 Annual Physical 1984 Hepatitis C 1999 Hepatitis B Vaccines (1 of 3 - 19+ 3-dose series) 2000 HPV Vaccines (1 - 3-dose SCD M series) 2008 Cervical Cancer Screening Pa p with HPV Testing (Age 30 to 64) Every 5 Years 2011 Cervical Cancer Screening with HPV 2011 Mammogram Screening 2021 PHQ-2 (Physician [place]) 07/17/2024 DTaP, Tdap and Td Vaccines ( 2 - Td or Tdap) 11/27/2024 11/27/2014 COVID-19 Vaccine (2023-2 5 season) 2025 Meningococcal B Vaccine Aged Out No l onger eligible based on patient's age to complete this topic Meningococcal Vaccine Aged Out No tammy kathy eligible based on patient's age to complete this topic Pneumococcal Vaccine: Pediat rics (0 to 5 Years) and At-Risk Patients (6 to 49 Years) Aged Out No longer eligi ble based on patient's age to complete this topic RSV Immunizations Under 20 Months Aged Out No longer eligible based on patient's age to complete this topic Insurance [employer] Care Teams Gear Design Engineer Relationship Specialty Start Date End Date Misty Lai APNP [address] [place] [id number] PCP - General NURSE PRACTITIONER 11/28/19
--- OUTSIDE RECORDS SUMMARY | 2025-04-08 08:12 | XMS_ITS | Encounter Summary ---
Author Organization [facility] Address [facility] [place] [address] Care Team Providers Care Manometer Technician Name Role Phone Misty Lai Primary Care Provider [phone]- [phone] Encounter Details Date Type Department Care Team (Late st Contact Info) Description 05/10/2023 AS[facility] III Message [facility] Family & Internal Medicine [address] [phone] [facility], [facility] Provider Screening Social History Tobacco Use Types Packs/Day Years [...] on file Sexual Orientation Not on file documented as of this encounter Plan of Treatment Not on file documented as of this encounter Visit Diagnoses Not on filedocumented in this encounter Care Teams Manometer Technician Relationship Specialty Start Date End Date Misty Lai APNP [address] [place] [id number] PCP - General NURSE PRACTITIONER 11/28/19 documented as of this encounter
[2025-04-08 08:28] LABS: Hematocrit 36.1 % (37.0-47.0); Hemoglobin 11.3 g/dL (12.0-15.0); Immature Granulocyte Percent A 0.4 % (0-0.5); Lymphocytes Absolute Auto 1.93 K/mm3 (0.9-3.2); Mean Corpuscular HGB Conc 31.3 g/dl (32-36); Mean Corpuscular Hemoglobin 26.9 pg (26-34); Mean Corpuscular Volume 86.0 fl (80-100); Nucleated Red Blood Cells Absolute Auto 0.000 K/mm3 (0.0-0.012); Nucleated Red Blood Cells Perc 0.0 % (0.0-0.2); Platelet Count Result 373 k/mm3 (150-375); Red Blood Count 4.20 M/mm3 (4.2-5.4); White Blood Count 6.9 K/mm3 (4.5-10.0)
[2025-04-08 08:39] LABS: Add Urine Microscopic? YES
--- OUTSIDE RECORDS SUMMARY | 2025-04-08 08:39 | XMS_ITS | Encounter Summary ---
Author Organization [facility] Address [facility] [place] [address] Care Team Providers Care Wire Rope Sling Maker Name Role Phone Misty Lai Primary Care Provider [phone]- [phone] Encounter Details Date Type Department Care Team (Late st Contact Info) Description 05/10/2023 [facility] Message [facility] Family & Internal Medicine [address] [phone] [facility], [facility] Provider Screening Social History Tobacco [...] on filedocumented in this encounter Care Teams Wire Rope Sling Maker Relationship Specialty Start Date End Date Misty Lai APNP [address] [place] [id number] PCP - General NURSE PRACTITIONER 11/28/19 documented as of this encounter
--- OUTSIDE RECORDS SUMMARY | 2025-04-08 08:39 | XMS_ITS | Clinical Summary ---
Author Organization [facility] Address [address] [place] [address] Care Team Providers Care Instructor Of Spanish Name Role Phone Joelle Misty JAY Primary Care Provider [phone]- [phone] Allergies No known active allergies Medications No [...] HPV 2011 Mammogram Screening 2021 PHQ-2 (Physician [place]) 07/17/2024 DTaP, Tdap and Td Vaccines ( [...] complete this topic Insurance [employer] Care Teams Instructor Of Spanish Relationship Specialty Start Date End Date Misty Lai APNP [address] [place] [id number] PCP - General NURSE PRACTITIONER 11/28/19
[2025-04-08 08:40] LABS: Appearance Urine Clear (Clear); Glucose Urine UA Negative (Negative); Nitrate Urine Negative (Negative); Specific Grav Ur 1.025 (1.001-1.035)
[2025-04-08 08:41] LABS: Alanine Aminotransferase 62 U/L (6-35); Albumin Level 4.5 g/dL (3.5-5.1); Alkaline Phosphatase 155 U/L (38-126); Anion Gap 14 mmol/L (4-12); Aspartate Amino Transferase 124 U/L (14-36); Bilirubin,Total 0.7 mg/dL (0.2-1.3); Blood Urea Nitrogen 10 mg/dL (7-17); Calcium 9.0 mg/dL (8.4-10.2); Carbon Dioxide 21 mmol/L (22-30); Chloride 98 mmol/L (98-107); Estimated CRCL calculation 85 ml/min; Estimated Glomerular Filt Rate > 60; Glucose 119 mg/dL (65-110); Leukocyte Esterase Ur Trace LEU/UL (Negative); Lipase 139 U/L (23-300); Potassium 3.9 mmol/L (3.4-5.0); Sodium 133 mmol/L (137-145); Total Protein 8.3 g/dL (6.3-8.2)
[2025-04-08] MEDS: HYDROmorphone HCL INJ (*CRX) 1 MG/ML SYR 0.5 MG IV PUSH ×2 (08:49→13:07)
[2025-04-08] MEDS: LACTATED RINGERS 1,000 ML 999 ML IV CONT (08:49)
[2025-04-08] MEDS: LACTATED RINGERS 800 ML 999 ML IV CONT (08:50)
[2025-04-08] MEDS: ACETAMINOPHEN 500 MG TABLET 1000 MG PO (13:07)
[2025-04-08] MEDS: KETOROLAC 15 MG/ML VIAL (*BKC) IV PUSH (13:07)
--- NOTE | 2025-04-08 13:50 | ED.GENADULT ---
HPI - General Adult General Chief complaint: Abdominal Pain Stated complaint: abd pain Time Seen by Provider: 04/08/25 08:14 History of Present Illness HPI narrative: This is a 44-year-old female with a history of bilateral salpingectomy due to tubo-ovarian abscess presenting for right lower quadrant pain. Pain started approximately 2 days ago. It is a throbbing pain in the right lower quadrant that is constant. It is not improving. Feels like when she had a tubo-ovarian abscess in the past. She has not had any fevers chills nausea vomiting or diarrhea. No vaginal discharge or irritation. Related Data Allergies Allergy/AdvReac Type Severity Reaction Status Date / Time No Known Allergies Allergy Verified 04/08/25 08:07 COUNTS INCLUDE 234 BEDS AT [facility] Past Medical History Medical History No pertinent past medical history Surgical History Surgical History No pertinent past surgical history Family History Family History Mother Family history non-contributory Social History Social History Smoking status: Current every day smoker Tobacco type: e-cigarettes/vaping Alcohol intake: current Drinks per week: 21 Alcohol use details: vodka Substance use: current Substance use type: marijuana Do You Feel Safe in your Home?: Yes Lack of Transportation: No Lack of Food: Never True Current Housing: I Have Housing Concerned About Future Housing: No Difficulty Paying Gas/Electric Bills: No Difficulty Paying for Meds: No Currently Unemployed: No Education: Decline to Answer Difficulty w/ Childcare or Family Care: No Living arrangements: with family Gender identity (if verbalized by the patient): Female Sexual Orientation (if Verbalized by the Patient): Straight or Heterosexual Spiritual care concerns: No Exam Narrative: APPEARANCE: No apparent distress. Head: atraumatic. EYES: EOMI, NOSE: Atraumatic NECK: Trachea midline RESPIRATORY: No increased rate of breathing clear to auscultation CARDIOVASCULAR: RRR, no peripheral edema ABDOMINAL: Tenderness in the right lower quadrant no guarding rebound MUSCULOSKELETAl: No obvious deformities NEURO: Alert. Moving 4/4 extremities SKIN:: Warm, dry. Normal color PSYCHIATRIC: Normal affect Course Vital Signs Vital signs: Vital Signs Temperature 97.6 F 04/08/25 08:03 Pulse Rate 90 04/08/25 08:03 Respiratory Rate 12 04/08/25 08:03 Blood Pressure 140/89 04/08/25 08:03 Pulse Oximetry 100 04/08/25 08:03 Oxygen Delivery Room Air 04/08/25 08:03 Temperature 97.6 F 04/08/25 08:03 Pulse Rate 67 04/08/25 08:51 Respiratory Rate 12 04/08/25 08:51 Blood Pressure 127/92 H 04/08/25 08:51 Pulse Oximetry 100 04/08/25 08:51 Oxygen Delivery Room Air 04/08/25 08:03 Medical Decision Making MDM Narrative Medical decision making narrative: -Course: 44-year-old female presenting with right lower quadrant pain. CT showed a large 6 mm cyst. Pelvic ultrasound obtained which showed a thin walled cyst with internal septations. Unclear if this is benign versus possible neoplasm. No fevers or white count to make me think this is an abscess. Case was discussed with Dr. Hampton who is covering Dr. Gamble. Patient has appointment on April [address] Gamble and OBGYN feels that she can follow up at that appointment safely provided that her pain is controlled. Patient given Toradol Tylenol and Dilaudid for pain control. She is re-evaluated and is feeling better. Patient be discharged follow-up with OBGYN. Given return precautions for pain. -DDX includes but is not limited to: Appendicitis, ovarian abscess assess, ovarian torsion, ovarian cyst, ovarian neoplasm -Co-morbidities complicating care: Bilateral salpingectomy following tubo-ovarian abscess Vital Signs Vital Signs: Vital Signs Temperature 97.6 F 04/08/25 08:03 Pulse Rate 90 04/08/25 08:03 Respiratory Rate 12 04/08/25 08:03 Blood Pressure 140/89 04/08/25 08:03 Pulse Oximetry 100 04/08/25 08:03 Oxygen Delivery Room Air 04/08/25 08:03 Temperature 97.6 F 04/08/25 08:03 Pulse Rate 67 04/08/25 08:51 Respiratory Rate 12 04/08/25 08:51 Blood Pressure 127/92 H 04/08/25 08:51 Pulse Oximetry 100 09/23/25 08:51 Oxygen Delivery Room Air 04/08/25 08:03 Lab Data 04/08/25 08:09 04/08/25 08:09 Labs: Lab Results 04/08/25 Range/Units 08:09 WBC 6.9 (4.5-10.0) K/mm3 RBC 4.20 (4.2-5.4) M/mm3 Hgb 11.3 L (12.0-15.0) g/dL Hct 36.1 L (37.0-47.0) % MCV 86.0 (80-100) fl MCH 26.9 (26-34) pg MCHC 31.3 L (32-36) g/dl RDW 15.5 H (11.5-14.5) % Plt Count 373 D (150-375) k/mm3 MPV 9.0 (7.4-10.4) fl Immature Gran % (Auto) 0.4 (0-0.5) % Neut % (Auto) 57.5 (45.5-73.1) % Lymph % (Auto) 28.2 (18.3-44.2) % [place] % (Auto) 7.6 (2.6-8.5) % Eos % (Auto) 4.4 (0-4.4) % Baso % (Auto) 1.9 H (0.2-1.2) % Lymph # (Auto) 1.93 (0.9-3.2) K/mm3 [place] # (Auto) 0.5 (0.1-0.6) K/mm3 Eos # (Auto) 0.3 (0-0.3) K/mm3 Baso # (Auto) 0.1 (0.0-0.1) K/mm3 Abs Immat Gran (auto) 0.03 (0.00-0.031) K/mm3 Absolute Neuts (auto) 3.9 (1.3-6.7) K/mm3 Absolute Nucleated RBC 0.000 (0.0-0.012) K/mm3 Nucleated RBC % 0.0 (0.0-0.2) % Sodium 133 L (137-145) mmol/L Potassium 3.9 (3.4-5.0) mmol/L Chloride 98 (98-107) mmol/L Carbon Dioxide 21 L (22-30) mmol/L Anion Gap 14 H (4-12) mmol/L BUN 10 (7-17) mg/dL Creatinine 0.66 L (0.7-1.0) mg/dL Estim Creat Clear Calc 85 ml/min Estimated GFR > 60 (59 - ) Glucose 119 H (65-110) mg/dL Calcium 9.0 (8.4-10.2) mg/dL Total Bilirubin 0.7 (0.2-1.3) mg/dL AST 124 H (14-36) U/L ALT 62 H (6-35) U/L Alkaline Phosphatase 155 H (38-126) U/L Total Protein 8.3 H (6.3-8.2) g/dL Albumin 4.5 (3.5-5.1) g/dL Lipase 139 (23-300) U/L Urine Color Yellow (Yellow) Urine Appearance Clear (Clear) Urine pH 6.0 (5.0-9.0) Ur Specific [place] 1.025 (1.001-1.035) Urine Protein 2+ H (Negative) mg/dL Urine Glucose (UA) Negative (Negative) mg/dL Urine Ketones Negative (Negative) mg/dL Ur Blood (Man) 2+ H (Negative) Urine Nitrate Negative (Negative) Urine Bilirubin 2+ H (Negative) Urine Urobilinogen 0.2 (<2.0) mg/dL Leukocyte Esterase Rfl Trace H (Negative) RANDALL/UL Urine RBC 0-2 (0-2) /hpf Urine WBC 0-5 (0-3) /hpf Ur Squamous Epith Cells Few (Few) /hpf Urine Bacteria Trace /hpf Urine Mucus Present /lpf Discharge Plan Discharge Clinical Impression: Ovarian cyst Patient Disposition: Home Condition: Stable Instructions: Antibiotic Form, Ovarian Cyst (ED) Additional Instructions: You seen emergency department for ovarian cyst. Please use Motrin/Tylenol for pain. Use oxycodone for breakthrough pain. Please call Dr. Gamble's clinic tomorrow morning and see if he would like you to come in earlier versus stain at your appointment on the 6. If you develop fevers or severe abdominal pain please return to ED for re-evaluation. Patient Language: Austrian Prescriptions: No Action hydrocodone-acetaminophen 5-325 mg Tablet 2 tablet PO Q3H PRN (Reason: Pain Rated 5 Or Less) Qty: 20 0RF metronidazole 500 mg Tablet 500 mg PO Q12HR Qty: 28 0RF doxycycline hyclate 100 mg Tablet 100 mg PO Q12HR Qty: 28 0RF Follow-up/Referrals: Daniel Gamble MD [Physician, DIRECTOR OF CONSUMER AFFAIRS] - 1 Day Referral Note: Large ovarian cyst PHYSICIAN NOT ON STAFF,NONSTAFF [Primary Care Provider]
== END 2025-04-08 14:19 | disposition home or self-care (01) ==
PROVIDERS: Emergency Provider Emergency Medicine
DX: N83.201 Unspecified ovarian cyst, right side (principal); D25.9 Leiomyoma of uterus, unspecified; F17.290 Nicotine dependence, other tobacco product, uncomplicated
CPT/HCPCS: 36415; 74177; 76830; 76856; 80053; 81001; 83690; 85025; 96361; 96374; 96375; 96376; 99284; A9270; J1171; J1885; J7120; Q9967

== ENCOUNTER 2025-04-25 10:24 | Outpatient (CLI) | payer OTHER, SELFPAY | END 2025-04-25 10:25 | disposition home or self-care (01) | LOC: ANHSURGERY 10:31 | PROVIDERS: PCP Registered Nurse; Visit Provider Obstetrics & Gynecology | DX: Z01.818 Encounter for other preprocedural examination (principal) | CPT/HCPCS: 36415; 86850; 86900; 86901 ==

== ENCOUNTER 2025-05-01 00:24 | Day surgery (SDC) | payer OTHER, SELFPAY ==
[2025-04-22 15:22] VITALS: BMI 19.9
--- NOTE | 2025-04-22 15:40 | PC.NURSE ---
[facility] has started construction of its new state of the art ER which will open Spring 2026. With this, we anticipate parking may be a challenge for some our surgical patients and families. Parking spaces are limited but are available for all Surgical, obstetrics, and ER patients sharing this lot. If you arrive and find you are having a hard time finding a parking space, please note that we understand the challenges, please drive around the hospital and park near Hospital Entrance 1. When you enter this entrance, you can ask a volunteer to direct or take you back to the surgical waiting area to check in. We appreciate everyone?s understanding of these expected challenges while we build for your future. Report to the Outpatient Waiting Room, entrance under the green pavilion located off [address], at time _1000_ on date _05/01/25_. Planned Procedure Time: _1200__.? Time changes happen often and if your time is changed the preop area will call you the afternoon before. - You and your visitor will be asked to self-screen and do not enter if you have any COVID symptoms. Please call surgeon if you need to reschedule. - A mask is optional within the hospital at this time. Patients may have clear liquids (water, carbonated beverages, clear teas, apple juice) until 3 hours prior to surgery with a maximum of 20 ounces. - No food from midnight until time of surgery and no smoking, or chewing tobacco (or any form of nicotine). No chewing gum, candy or mints. Take only the following medications with a SIP of water on the morning of surgery: __NONE__ DO NOT STOP ANY OF YOUR OTHER PRESCRIPTION MEDICATIONS PRIOR TO SURGERY EXCEPT THE FOLLOWING Hold all vitamins and supplements for 3 days per anesthesiologist. Please no make-up, nail bhutanese, hairspray, perfume, deodorant, or body powder the day of surgery.? No jewelry (including any body piercings) or valuables the day of surgery, leave them at home.? Please take a shower or bath the night before, or the morning of, surgery with an antibacterial soap.? Wear comfortable, loose fitting clothing.? - Jewelry must be removed prior to entering the operating room.? Rings and piercings that are not removed may be cut off. - The hospital will not accept responsibility for valuables.? - Please leave all valuables, including medications, at home the day of surgery. If you are going home after surgery, a licensed jitney driver must drive you home.? - NO public transportation without another adult if you receive anesthesia. - We recommend that an adult stay with you for 24 hours following discharge. - We also recommend that you do not drive, make important decision, drink alcoholic beverages, or take any drugs that were not prescribed by your health care provider for at least 24 hours after your discharge time. Follow any additional instructions given to you from your surgeon. Telephone instructions given to _Mellissa_and asked if any additional questions and then verbalized understanding. Patient advised to call surgeon office or pre surgery nurse liaison [phone] if any additional questions.
[2025-05-01] VITALS (7 sets, daily range): BP systolic 117–143; BP diastolic 57–95; PULSE 68–87; RESP 12–18; TEMP 36.1–36.9; O2SAT 98–100
--- OUTSIDE RECORDS SUMMARY | 2025-05-01 00:26 | XMS_ITS | Clinical Summary ---
Author Organization [facility] Address [address] [place] [address] Care Team Providers Care Child Development Consultant Name Role Phone Joelle, Misty Samina JAY Primary Care Provider [phone] Allergies No known active allergies Medications No [...] HPV 2011 Mammogram Screening 2021 PHQ-2 (Physician [place]) 07/17/2024 DTaP, Tdap and Td Vaccines ( 2 - Td or Tdap) 11/27/2024 11/27/2014 COVID-19 Vaccine (2023-2 5 season) 2025 Influenza Adult (#1) 2025 Meningococcal B Vaccine Aged Out No [...] patient's age to complete this topic Insurance Care Teams Child Development Consultant Relationship Specialty Start Date End Date Misty Lai APNP [address] [place] [id number] PCP - General NURSE PRACTITIONER 11/28/19
--- OUTSIDE RECORDS SUMMARY | 2025-05-01 00:26 | XMS_ITS | Encounter Summary ---
Author Organization [facility] Address [facility] [place] [address] Care Team Providers Care Audio Director Name Role Phone Misty Lai Primary Care Provider [phone] Encounter Details Date Type Department Care Team (Late st Contact Info) Description 05/10/2023 Audiosocket Message [facility] Family & Internal Medicine [address] [phone] [facility] Provider Screening Social History Tobacco Use Types [...] on filedocumented in this encounter Care Teams Audio Director Relationship Specialty Start Date End Date Misty Lai APNP [address] [place] [id number] PCP - General NURSE PRACTITIONER 11/28/19 documented as of this encounter
--- OUTSIDE RECORDS SUMMARY | 2025-05-01 00:26 | XMS_ITS | Data Portability ---
Author Organization [facility] Address [address] [place] [address] Care Team Providers Care Swatch Folder Name Role Phone TREVA JACQUES Primary Care Provider [phone] Assessment Encounter Date Assessment Date Assessment LastModified by Organization Details LastModified Time 03/19/2025 03/19/2025 Annual gynecological exam performed. Patient will come back in a year unless there are new symptoms. Not available 03/19/2025 15:39:09 Plan of Treatment Reminders Order Date Submit Date Provider Last Modified By Organization Details Last Modified Time Details Appointments Robotic TLH 2024 12:00P Alida GAMBLE MD Not available Not available Not available SURG POST OP 2024 09:30A Alida GAMBLE MD Not available Not available Not available Lab pap, IG + HR HPV - HPV regardles s but if HPV is positive need subtyping 16,18/45 2024 025 [facility] (Lab), [address] [place], [address], 03/21/2025 14:42:09 Referral gastroent erologist referral 2024 025 KURTIS Arias MD, [address], [place], [address], 03/26/2025 19:00:02 Procedures None recorded. Surgeries laparosco pic ovarian cystectom y (SURG) 2024 025 [email or web address] [facility], [address], [place], [address], 04/10/2025 13:34:40 robotic assisted hysterect kiana with salpingec rbenda (SURG) 2024 025 [id number] [facility], [address], [place], [address], 04/11/2025 10:26:53 Imaging MAMMO, screening , digital, bilateral 2024 025 [email or web address] [facility], [address] [place], [address], 04/30/2025 10:00:29 Medication Orders None recorded. Patient TargetsNo targets recorded. Patient InstructionsNo instructions recorded. Reason for Referral [employer] Referral for Painless rectal bleeding Referring Physician: Latanya Eldridge, Gynecology, Encounter Date: 03/19/2025 Results Created Date Observation Date Name Description Value Unit Range Abnormal Flag Note LastModifiedBy Organization Detail LastModifiedTime 10/09/19 24 10/09/2023 CT/GC AND TRICH OMONA S VAGIN CLAUDE (RRNA ), URINE chlamydia trachomatis, PCR Negati ve negati ve Not Available [facility] (Lab) [address], [place], [address], 10/10/2023 13:10:14 10/09/19 24 10/09/2023 CT/GC AND TRICH OMONA S VAGIN CLAUDE (RRNA ), URINE neisseria gonorrhoeae, PCR Negati ve negati ve Not Available [facility] (Lab) [address], [place], [address], 10/10/2023 13:10:14 10/09/19 24 10/09/2023 CT/GC AND TRICH OMONA S VAGIN CLAUDE (RRNA ), URINE trichomonas vaginalis ribosomal RNA (rrna) Negati ve negati ve Not Available [facility] (Lab) [address], [place], [address], 10/10/2023 13:10:14 03/19/20 25 03/19/2025 IMAGE GUIDE D PAP AND HPV REGAR DLESS image guided Pap, HPV regardless of Pap result SEE RESULT S BELOW abnormal CASE REPOR T: Cytol ogy Gynec ologi mel Repor t Case: [id number] Autho tin hutton Provi thony: Dermo dy, Latanya , ANP, NURSING ASSOC Colle cted: 03/19 1553 Order ing Locat ion: [place] Patho log[facility] Recei cecy: 03/20 0154 First Scree n: Benigno Mason, CT Patho logis t: Santi Diaz MD Speci men: Elvin reyes Pap - Image d, Cervi x STATE MENT OF ADEQU ACY: Satis facto ry for evalu ation Trans forma tion zone compo nent prese nt ----- ----- ----- ----- ----- ----- ----- ----- ----- ----- ----- ----- ----- ----- ----- ----- ----- ---- FINAL DIAGN OSIS: Epith elial Cell Abnor malit y, Squam ous Cell: Low Grade Squam ous Intra epith elial Lesio n (LSIL ). Bear esquivel by Santi Diaz MD on 025 at 1240 CDT ----- ----- ----- ----- ----- ----- ----- ----- ----- ----- ----- ----- ----- ----- ----- ----- ----- ---- HPV RESUL TS: HPV mRNA E6/E7 : Posit jluis - HPV mRNA Detec darrick HPV GENOT YPE 16 (WENDY) : Not Detec darrick HPV GENOT YPE 18/45 (WENDY) : Not Detec darrick NOTE: This high risk HPV mRNA assay detec ts fourt een high- risk HPV types (16, 18, 31, 33, 35, 39, 45, 51, 52, 56, 58, 59, 66, 68) witho ut diffe renti ation . This assay can diffe renti ate HPV 16 from HPV 18/45 , but does not diffe renti ate betwe en HPV 18 and HPV 45. A negat jluis HPV 16, 18/45 genot ype assay resul t does not exclu de the possi bilit y of cytol ogic abnor malit ies or of futur e or under lying MALIK 1, MALIK 3 or cance r. COMME NT: This speci men was revie wed by a Cytot echno logis t and/o r Patho logis t (as indic ated in this repor t) after evalu ation using the Thinp rep Imagi ng Syste m. CLINI MEL INFOR MATIO N: Menst rual Statu s: LMP (if appli cable ): Clini mel Histo ry/Pr eviou s Pap: Type of Neopl courtney (if appli cable ): Signi fican t Clini mel Findi ngs: Other Histo ry: Hormo priya (if appli cable ): LXEY VELIZ FOLLO W-UP: Follo w up as warra nted, based on curre nt guide lines and indiv idual patie nt consi derat ions. Not Available [facility] (Lab) [address], [place], [address], 03/21/2025 14:42:09 08/20/19 24 08/20/2023 US, pelhussein s No observ ation record ed. [email or web address] [facility] [address], [place], [address], 08/20/2023 20:53:40 Result Notes None recorded. Problems Name Problem SNOMED Code Status Onset Date Resolution Date Notes Provider Name and Address Organization Details Recorded Time Abnormal cervical Papanicolaou smear 699560568 Active 2023 Colpo -MALIK 1 013 lgsil hpv Tami Peña null, [facility] 4 09:56:54 Human papilloma virus infection 848089581 Active 2023 Tami Peña [facility] 4 09:57:06 Herpes simplex 48172508 Active 2023 Tami Peña [facility] 4 09:57:11 Problem Notes None recorded. Procedures Surgical History Date Name Laterality Status Provider Name and Address Organization Details Recorded Time 5 Date of Last Pap Smear completed Clare Terry [facility] 04/10/2025 11:35:10 4 Laparotomy completed [facility] 10/09/2023 09:43:07 3 Colposcopy completed [facility] 10/09/2023 09:43:28 Imaging Results None recorded. Procedure Notes None recorded. Medical Equipment None Reported. Allergies No known drug allergies Medications Name Sig Start Date Stop Date Status Note LastModified by Organization Details LastModified Time ibuprofen 800 mg tablet TAKE 1 TABLET BY MOUTH THREE TIMES DAILY NEEDED FOR PAIN FOR 7 DAYS active Not Available Not Available No t Available hydrocodo ne 5 mg-acetam inophen 325 mg tablet TAKE 2 TABLETS BY MOUTH EVERY 3 HOURS NEEDED FOR PAIN RATED 5 OR LESS 10/07 completed Not Available Not Available Not Available metronida zole 500 mg tablet TAKE 1 TABLET BY MOUTH EVERY 12 HOURS 10/07 completed Not Available Not Available Not Available acetamino phen 500 mg tablet TAKE 2 TABLETS BY MOUTH THREE TIMES DAILY NEEDED FOR PAIN FOR 7 DAYS active Not Available Not Available No t Available Metrogel Vaginal 0.75 % (37.5 mg/5 gram) insert 1 applicat orful by vaginal route every day at bedtime 10/07 completed Prescrib ed Niki e: No Locat ion: [facility] M odify By: katheryn guy DateTime : 04/29/20 15 04:46:20 PM Not Available Not Available Not Available Aldara 5 % topical cream packet apply by topical route 5 times every week to the affected area(s) 09/05 completed Prescrib ed Elsewher e: No Locat ion: [facility] odify By: arsen bruno DateTime : 04/11/20 13 11:00:00 AM Not Available Not Available Not Available Valtrex 500 mg tablet take 1 tablet (500MG) by oral route every day 10/07 completed Prescrib ed Elsewher e: No [facility] By: rodrigohar tz Encou nter DateTime : 04/11/20 13 11:00:00 AM Not Available Not Available Not Available doxycycli ne hyclate 100 mg tablet TAKE 1 TABLET BY MOUTH EVERY 12 HOURS 10/07 completed Not Available Not Available Not Available Condylox 0.5 % topical solution apply by topical route every 12 hours for 3 consecut jluis days, then disconti nue for 4 consecut jluis days. This one week cycle of treatmen t may be repeated until there is no visible wart tissue or for a maximum of four cycles. 09/05 completed Prescrib ed Elsewher e: No Locat ion: [facility] odify By: arsen bruno DateTime : 03/10/20 14 10:30:00 AM Not Available Not Available Not Available oxycodone 5 mg tablet TAKE 1 TABLET BY MOUTH EVERY 4 HOURS NEEDED FOR PAIN active Not Available Not Available No t Available Vitals Date Recorded Body height Body mass index (BMI) Body weight Systolic And Diastolic Provider Name and Address Organization Details Last Updated DateTime 08/28/2023 170.18 cm 21.5 kg/m2 28228.15 g 133/80 mm[Hg] Jeanne Morse [facility] 08/28/2023 11:04:43 Date Recorded Body height Body mass index (BMI) Body weight Systolic And Diastolic Provider Name and Address Organization Details Last Updated DateTime 10/09/2023 170.18 cm 21.1 kg/m2 28273.97 g 154/99 mm[Hg] Tami Peña [facility] 10/09/2023 09:54:46 Date Recorded Body height Body mass index (BMI) Body weight Systolic And Diastolic Systolic And Diastolic Provider Name and Address Organization Details Last Updated DateTime 03/19/2025 170.18 cm 19.5 kg/m2 68676.89 g 151/92 mm[Hg] 136/84 mm[Hg] Candis Katie [facility] 16:17:16 Date Recorded Body height Body mass index (BMI) Body weight Systolic And Diastolic Provider Name and Address Organization Details Last Updated DateTime 04/10/2025 170.18 cm 20.5 kg/m2 00315.6 g 158/90 mm[Hg] Clare [facility] 04/10/2025 11:34:25 Date Recorded Body height Body mass index (BMI) Body weight Systolic And Diastolic Provider Name and Address Organization Details Last Updated DateTime 04/21/2025 170.18 cm 19.9 kg/m2 41649.23 g 133/81 mm[Hg] Clare [facility] 04/21/2025 12:31:08 Social History Question Answer Notes LastModified by Organizat ion Details LastModified Time Tobacco Smoking Status Current Some Day Smoker Tami gardner, [facility] 10/09/2023 09:42:31 Do You Have An Advance Directive? No [email or web address] Information not available 03/19/2025 How Many Years Have You Consumed Alcohol? 10 [email or web address] Information not available 03/19/2025 Are You Blind Or Do You Have Difficulty Seeing? No [email or web address] Information not available 10/09/2023 What Is Your Level Of Caffeine Consumption? Occasional [email or web address] Information not available 10/09/2023 In The 14 Days Before Symptom Onset, Have You Had Close Contact With A Laboratory-confir med COVID-19 While That Case Was Ill? No [email or web address] Information not available 10/09/2023 In The 14 Days Before Symptom Onset, Have You Had Close Contact With A Person Who Is Under Investigation For COVID-19 While That Person Was Ill? No [email or web address] Information not available 10/09/2023 Have You Been To An Area Known To Be High Risk For COVID-19? Yes [email or web address] Information not available 03/19/2025 Are You Deaf Or Do You Have Serious Difficulty Hearing? No [email or web address] Information not available 10/09/2023 What Type Of Diet Are You Following? REGULAR [email or web address] Information not available 10/09/2023 What Is The Highest Grade Or Level Of School You Have Completed Or The Highest Degree You Have Received? IV75342-3 [email or web address] Information not available 03/19/2025 Are There Any Guns Present In Your Home? No [email or web address] Information not available 03/19/2025 Have You Ever Been Counseled For Unhealthy Alcohol Use? No [email or web address] Information not available 10/09/2023 Do You Use Protection During Sex? No [email or web address] Information not available 03/19/2025 Do You Use Your Seat Belt Or Car Seat Routinely? Yes [email or web address] Information not available 10/09/2023 Are You Sexually Active? Yes [email or web address] Information not available 10/09/2023 Do You Have Smoke And Carbon Monoxide Detectors In Your Home? Yes [email or web address] Information not available 10/09/2023 How Much Tobacco Do You Smoke? No [email or web address] Information not available 03/19/2025 Do You Use Sunscreen Routinely? Yes [email or web address] Information not available 10/09/2023 Has Tobacco Cessation Counseling Been Provided? Yes [email or web address] Information not available 10/09/2023 On What Date Was Tobacco Cessation Counseling Provided? 10/09/2023 [email or web address] Information not available 10/09/2023 Have You Used IV Drugs? No [email or web address] Information not available 03/19/2025 Do You Have Difficulty Walking Or Climbing Stairs? No [email or web address] Information not available 10/09/2023 Sex: Unknown Functional Status Question Answer Note LastModified by Organizat ion Details LastModified Time Do you use any illicit or recreational drugs? Yes weed [email or web address] Information not available 10/09/2023 Do you or have you ever used any other forms of tobacco or nicotine? Yes [email or web address] Information not available 10/09/2023 What is your level of alcohol consumption? Moderate [email or web address] Information not available 03/19/2025 Are you able to walk independently without assistance or assistive devices? YESWOREST [email or web address] Information not available 10/09/2023 Are you able to care for yourself independently? 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 No [email or web address] Information not available 10/09/2023 Do you or have you ever used e-cigarettes or vape? Current user of electronic cigarettes [email or web address] Information not available 10/09/2023 What is your exercise level? Occasional [email or web address] Information not available 10/09/2023 Mental Status Question Answer Note LastModified by Organization D etails LastModified Time Do you feel stressed (tense, restless, nervous, or anxious, or unable to sleep at night)? [id number] [email or web address] Information not available 03/19/2025 Family History Relationship Description Onset Age of this Age Resolved Age Notes LastModified by Organization Details LastModified Time Maternal Grandmother Malignant neoplasm of colon [email or web address] Not available 2024 10:46:56 Paternal Grandmother Malignant neoplasm of breast [email or web address] Not available 2024 15:58:58 Father Coronary arterioscler osis [email or web address] Not available 2024 10:46:56 Medical History Condition Response Allergies (Food, seasonal, environmental ) N Other N Drug/Latex Allergies/Reactions N Blood Transfusion N Breast Cancer N Dermatologic Disorders N Lung Disease N Defects or Inherited Disease N Breast Problem N Gestational Diabetes N Hematologic disorders N Anesthesia Complications N History of STI Y Deep Vein Thrombosis N Polycystic ovary syndrome N Anxiety Disorder N Autoimmune disease N Arthritis N Polyps N Infertility N Acid Reflux (GERD) N History of abnormal pap Y Cancer N Varicosities N Stroke N Neurologic/Epilepsy N Endometriosis N High Cholesterol N Fibromyalgia N Headaches N Kidney Disease N Heart Problems N Thyroid Problems N Kidney or Bladder Problems N GI Problems N Eating Disorder N Anemia N Art (IVF or FET) N Psychiatric Illness N Ovarian Cancer N Diabetes N Pulmonary (TB, Asthma) N Hepatitis/Liver Disease N No Past Medical History N Eczema N Urinary Tract Infection N Abuse/Domestic Violence N Asthma N Trauma/Violence N Depression/ depression N Heart Disease N Pre-Eclampsia N Hypertension N Osteoporosis N Thrombophilias N Gynecological History Statement/Question Response Abnormal Pap Y Date of Last Mammogram Flow Moderate Date of LMP 04/08/2025 Was last menstrual period normal Y STIs/STDs Y HPV Vaccine N Colposcopy Duration of Flow (days) 5 Current Control Method Sterilizati on Are cycles usually normal Y Frequency of Cycle (Q days) 26 Sexually Active? Y Menses Monthly Y Date of DEXA bone scan Age of first menstrual cycle 14 Date of Last Pap Smear 03/19/2025 Sexual Problems? N Desired Control Method Hysterectom y LMP Definite N Obstetrics History GPAL:G 0 P 0 0 0 0 Past Encounters Encounter ID Performer Location Encounter Start Date Encounter Closed Date Diagnosis/Indication Diagnosis SNOMED-CT Code Diagnosis ICD10 Code Diagnosis IMO Codes Diagnosis Note [id number] Daniel Gamble MD [place] [address] [address] 08/28/2023 10:40:08 08/28/2023 12:12:28 Postoperative care [id number] Z48.89 42-year-ol d female presents for postop follow-up. She is 1 week postop from a laparotomy . She had bilateral tubo-ovari an abscesses that were large. She is recovering normally. She is still taking her antibiotic s. Her incision is clean dry and intact. No evidence of infection. She does have some abdominal distention . She did not have bowel movement for 5 days and pass flatus after 5 days only. She still has some distention . She has not vomiting or have nausea. She passes flatus and is having bowel movements. She will follow-up as needed. She has no complaints . [id number] Daniel Gamble MD [place] [address] [address] 10/09/2023 09:43:03 10/09/2023 17:00:04 Sexually transmitted infectious disease 2288859 A64 43-year-ol d female presents for test of cure. She was treated for gonorrhea /chlamydia several weeks back. She denies any symptoms. She denies any symptoms of pelvic inflammato ry disease/ pelvic pain, fever, nausea vomiting. . She will follow-up as needed. [id number] LATANYA ELDRIDGE NP [place] [address] [address] 03/19/2025 15:35:37 03/19/2025 16:29:59 Well woman health examination 945013889 Z01.419 [id number] Annual gynecologi mle exam performed. Patient will come back in a year unless there are new symptoms. Suggest Calcium with Vitamin D if not eating in diet. Patient advised to get annual flu shot. Recommend yearly physicals and perform monthly breast exams. Genetic testing is available for patients with family history of cancer. Engage in safe sexual practices, use condoms. Encouraged to have daily exercise. Avoid tobacco and illicit drugs, moderation of alcohol. If BMI greater than 25 dietary consult advised. If you have any questions please call or email. mammogram- ordered; pt to schedule colon cancer screening - referred to GI due to rectal bleeding; history hemorrhoid s DEXA scan- n/a Pap smear- pap w/ HPV collected laboratory evaluation - PCP STI testing - denies Screening mammography 24 630477 Z12.31 [id number] Painless r ectal bleeding 925692939 K62.5 [id number] Recommende d GI referral for further evaluation of intermitte nt rectal bleeding and hx of painful hemorrhoid s.Discusse d that no external hemorrhoid s were noted on exam today.ER precaution s reviewed. History of sexually transmitted disease 358799230 Z86.19 [id number] Discussed that three small (<1 cm) genital warts were noted on exam today.Margaret ent reports history of genital warts (positive HPV).Discu ssed TCA vs imiquimod for genital wart treatment. Patient declines treatment at this time as warts are not bothersome . [id number] Daniel Gamble MD [place] [address] [address] 04/10/2025 10:45:43 04/10/2025 17:07:52 Menorrhagia 216754070 N92.0 [id number] this patient is a 44-year-ol d female who presents for menorrhagi a, ovarian cyst, pelvic pain, abnormal Pap smear. We discussed each of these issues. We discussed the etiology, natural history, treatment of each component of her problem set. Spent over 30 minutes on the patient's care in total. We discussed her bleeding. She has severe menorrhagi a that affects her quality of life and activities of daily living. We talked about medical and surgical treatment options. Ultimately she would like definitive surgical treatment. We agreed to robotic assisted hysterecto my with right ovarian cystectomy . She is status post salpingect kiana. The patient understand s the procedure. The procedure was described to the patient in great detail. the patient also understand s the risks. The risks were also explained in detail. She understand s that injuries May occur during surgery. She understand s these injuries can result in hospitaliz ation, more surgery, and severe illness. She understand s there is risk of hemorrhage and infection. Cyst of right ovary 1223 432069 [id number] N83.201 [id number] Pain in pelvis 58479949 R10.2 [id number] Daniel Gamble MD [place] [address] [address] 04/21/2025 12:24:05 04/22/2025 08:36:19 Menorrhagia 850985496 N92.0 [id number] this patient is a 44-year-ol d female with severe menorrhagi a and right ovarian cyst. We have agreed to perform robotic assisted hysterecto my with bilateral salpingect kiana and right ovarian cystectomy . She understand s the risks, benefits, and alternativ es. She has completed the informed consent process and is ready to proceed. Health Concerns Section Related Observation LastModified by Organization Detai ls LastModified Time None Recorded Concern Status LastModified by Organization Details LastModified Time None Recorded Advance Directives Directive N: Payers Insurance Date Sequence Insurance Name Policy Number Policy Kumar Covered Member ID Kumar Member ID Guarantor Name 04/30/2025 1 [id number] Mellissa Diehl [id number] Mellissa Diehl Notes Date Note Type Note Provider Name and Address Organization Details Recorded Time 4 text/html 42-year-old female presents for postop follow-up. She is 1 week postop from a laparotomy. She had bilateral tubo-ovarian abscesses that were large. She is recovering normally. She is still taking her antibiotics. Her incision is clean dry and intact. No evidence of infection. She does have some abdominal distention. She did not have bowel movement for 5 days and pass flatus after 5 days only. She still has some distention. She has not vomiting or have nausea. She passes flatus and is having bowel movements. She will follow-up as needed. She has no complaints. Daniel Gamble MD [address], [place], [address], [facility] 08/28/2023 11:32:20 4 text/html 43-year-old female presents for test of cure. She was treated for gonorrhea /chlamydia several weeks back. She denies any symptoms. She denies any symptoms of pelvic inflammatory disease/ pelvic pain, fever, nausea vomiting. . She will follow-up as needed. Daniel Gamble MD [address], [place], [address], [facility] 10/09/2023 16:52:28 5 text/html Annual GYNReported by PatientGenitourinary symptomsFor menstrual cycle, patient reportsnormal menses. For urinary symptoms, patient reportsno hematuriaandno incontinence. For vulva, patient reportsno genital lesion. For vagina, patient reportsnormal vaginal discharge.Breast symptomsFor breast, patient reportsno breast pain,no breast lump, andno nipple discharge.ContraceptionFo r current contraception, patient reportstubal ligation.Endocrine symptomsFor sexual complaints, patient reportsno sexual complaints,no pain during intercourse, andnormal libido. For menopausal symptoms, patient reportsno menopausal symptomsandnormal vaginal lubrication.Psychological symptomsFor psychological symptoms, patient reportsno depression,no anxiety, andno pmdd.Preventative measuresFor preventive measures, patient reportsencourage self breast examination,encourage regular exercise,encourage no tobacco use, andencourage regular mammograms starting age 40. 44 y/o female presents for annual well woman exam. Patient reports history of external hemorrhoids that will occasionally cause pain after bowel movements. Reports using Preparation H, which helps improve the pain.Patient also reports that she has experienced episodes of painless rectal bleeding intermittently over the past 6 months. Patient states that she will notice the bleeding a few days before each period and sometimes after bowel movements when wiping.Denies pelvic pain, constipation, diarrhea, bloating, N/V/F. Denies changes in bowel habits.Reports that periods are regular, every 28 days, last 5 days with moderate flow. LATANYA ELDRIDGE NP [address], [place], [address], [facility] 03/19/2025 16:27:20 5 text/html this patient is a 44-year-old female who presents for menorrhagia, ovarian cyst, pelvic pain, abnormal Pap smear. We discussed each of these issues. We discussed the etiology, natural history, treatment of each component of her problem set. Spent over 30 minutes on the patient's care in total. We discussed her bleeding. She has severe menorrhagia that affects her quality of life and activities of daily living. We talked about medical and surgical treatment options. Ultimately she would like definitive surgical treatment. We agreed to robotic assisted hysterectomy with right ovarian cystectomy. She is status post salpingectomy. The patient understands the procedure. The procedure was described to the patient in great detail. the patient also understands the risks. The risks were also explained in detail. She understands that injuries May occur during surgery. She understands these injuries can result in hospitalization, more surgery, and severe illness. She understands there is risk of hemorrhage and infection. Daniel Gamble MD [address], [place], [address], [facility] 04/10/2025 16:56:55 5 text/html this patient is a 44-year-old female with severe menorrhagia and right ovarian cyst. We have agreed to perform robotic assisted hysterectomy with bilateral salpingectomy and right ovarian cystectomy. She understands the risks, benefits, and alternatives. She has completed the informed consent process and is ready to proceed. The patient understands the procedure. The procedure was described to the patient in great detail. the patient also understands the risks. The risks were also explained in detail. She understands that injuries May occur during surgery. She understands these injuries can result in hospitalization, more surgery, and severe illness. She understands there is risk of hemorrhage and infection. Daniel Gamble MD [address], [place], [address], [place] MD - [facility] 04/21/2025 18:42:22 OBGyn Episode No OBEpisode recorded.
[2025-05-01 11:18] LABS: Beta HCG Quantitative < 2.39 mIU/ML
[2025-05-01] MEDS: KETOROLAC 15 MG/ML VIAL (*BKC) IV PUSH (11:30)
[2025-05-01] MEDS: SCOPOLAMINE 1 MG PATCH 1 PATCH TRANSDERM (11:30)
[2025-05-01] MEDS: LACTATED RINGERS 1,000 ML 30 ML IV CONT ×2 (11:30→17:36)
[2025-05-01] MEDS: ACETAMINOPHEN 500 MG TABLET 1000 MG PO ×2 (11:30→22:06)
--- NOTE | 2025-05-01 11:37 | P.PNAN_ITS ---
Anes - Initial Pre Proc Eval Procedure: Operation Date: 05/01/25 12:00 Proposed Procedures p Robotic Assisted Hysterectomy with Bilateral Salpingectomy, Laparoscopic Ovarian Cystectomy - aDniel Gamble MD Date/Time: 05/01/25 11:37 Surgeon: Daniel Gamble MD Pre Op Diagnosis: Menorrhagia with reg cycle, Rt ovarian cyst Patient Data Age: 44 Gender: F Height: 1.7 m Weight: 57.7 kg Allergies Allergy/AdvReac Type Severity Reaction Status Date / Time No Known Allergies Allergy Verified 04/22/25 15:20 Home Medications ?Medication ?Instructions ?Recorded ?Confirmed ?Type No Home Medications 04/22/25 04/22/25 H istory Laboratory Tests 05/01/25 10:42 Beta HCG, Quant < 2.39 mIU/ML Patient hx anesthesia problems: post op nausea/vomiting Family hx anesthesia problems: none Results Review: All pre-operative results and documents have been reviewed as part of the pre- operative evaluation. [facility] Past Medical History Medical History No pertinent past medical history Surgical History Surgical History No pertinent past surgical history Family History Family History Mother Family history non-contributory Social History Social History Smoking packs per day: 1 Smoking cigarettes per day: 20.0 Years smoked: 16 Smoking pack-years: 16.00 Smoking status: Current every day smoker Tobacco type: e-cigarettes/vaping Smoking end date: 07/17/14 Additional smoking assessment comments: cigarettes for 16 years, stopped in 2014.Current everyday vaping since 2014 Alcohol intake: current Drinks per week: 12 Alcohol use details: 3 days a week will have 3-4 drinks Substance use: current Substance use type: marijuana Do You Feel Safe in your Home?: Yes Lack of Transportation: No Lack of Food: Never True Current Housing: I Have Housing Concerned About Future Housing: No Difficulty Paying Gas/Electric Bills: No Difficulty Paying for Meds: No Currently Unemployed: No Education: Decline to Answer Difficulty w/ Childcare or Family Care: No Living arrangements: with family Gender identity (if verbalized by the patient): Female Sexual Orientation (if Verbalized by the Patient): Straight or Heterosexual Spiritual care concerns: No Anes - Eval Final PreProcedure Day of Procedure 05/01/25 11:37 Patient weight: normal Heart: regular rate and rhythm Lungs: clear to auscultation Airway: Mallampati scale class II Neurological: alert and oriented Last oral intake: >/= 8 hours ASA classification: II Emergent: no Anesthetic plan: proceed Anesthesia type and monitoring: general ETT and standard monitoring Results Review: All pre-operative results and documents have been reviewed as part of the pre- operative evaluation. Informed Consent: The patient's anesthetic plan and its attendant risks and benefits were discussed with the patient/family/POA. Questions were solicited and answers provided to the satisfaction of the patient/family/POA.
--- NOTE | 2025-05-01 11:57 | WPDHPUPDATE1 ---
History and Physical Update Update Date/Time: 05/01/25 11:57 History and Physical has been reviewed, including an updated exam of the patient. There are NO changes in the patient's condition. Risks, benefits, and alternatives have been discussed and questions answered. Patient agrees to proceed with procedure.
[2025-05-01] MEDS: ceFAZolin 2 GM in SODIUM CHLORIDE 0.9% IV 50 ML 100 ML IVPB ×2 (12:04→22:03)
--- NOTE | 2025-05-01 16:19 | P.OP_ITS ---
Procedure Note - Detailed Date of Procedure 05/01/25 Pre-op Diagnosis Copious dense small bowel and sigmoid colon adhesions to abdominal wall and uterus. Post-op Diagnosis Same Procedure Performed Extensive robotic assisted laparoscopic abdominal and pelvic adhesiolysis (3hours) Surgeon Cheo Shipley MD, Damian Stevenson DO Library Circulation Clerk ADITHYA Mo Anesthesia General Indications Patient is a 44-year-old female who was in the operating room undergoing a robotic assisted laparoscopic hysterectomy and right oophorectomy. Dr. Gamble encountered very dense and copious adhesions of the small bowel to the anterior abdominal wall as well as to the uterus as well as dense adhesions of the sigmoid colon to the posterior wall the uterus. We were asked to come into the operating room for operatively for emergent assistance with performing adhesiolysis of the bowel in the abdomen and pelvis. Findings Patient had dense adhesions of multiple loops of small bowel to the midline anterior abdominal wall as well as to the fundus of the uterus. Patient also had dense adhesions of the sigmoid colon to the posterior wall the uterus and into the pelvis and cul-de-sac. Extensive adhesiolysis was performed with robotic laparoscopic assistance without obvious injury to the loops of small bowel or sigmoid colon. The total time for just adhesiolysis performed by Dr. Shipley and Dr. Stevenson as co- general surgeons for this procedure was hakeem [id number]. Dr. Shipley performed adhesiolysis of the small bowel from the anterior abdominal wall and off of the fundus of the uterus and Dr. Stevenson performed the adhesiolysis of the sigmoid colon off of the posterior wall of the uterus and cul-de-sac of the pelvis. Description of Procedure We were called emergently into the operating room to the assist Dr. Gamble with performing a a robotic assisted laparoscopic adhesiolysis. The patient was to be undergoing a robotic assisted laparoscopic abdominal hysterectomy. One I 1st entered to the operating room the patient was already under general anesthesia and stable. Robotic ports had been advanced into the abdomen already in the robotic platform was docked at the patient's bedside. Dr. Gamble had performed the initial parts of the surgery to enter the abdomen and start the procedure robotically. I then sat down the robotic console to perform the dissection and adhesiolysis robotically. Utilizing a Cadiae atraumatic grasper and sharp robotic tami I very carefully over the course of the next 2hours proceeded to perform an extensive adhesiolysis of the small bowel off of the lower anterior abdominal wall. Once I had all the loops of the small bowel freed from the abdominal wall I continued by adhesiolysis of the small bowel down into the pelvis where I released the small bowel from the fundus of the uterus where sharp robotic scissor dissection. At this point all the small bowel was reduced out the pelvis and I could see the sigmoid colon which was densely adherent to t he posterior wall of the fundus the uterus and the lower uterine segment. At this point I then called Dr. Stevenson into the operating room and requested that he perform the adhesiolysis of the sigmoid colon off of the posterior wall of the uterus since he has more experience than I do on robotic sigmoid colon procedures. He then sat down the console and performed over the next hour very careful dissection of the sigmoid colon off of the posterior wall of the uterus utilizing blunt dissection with the robotic sucker as well as the robotic vessel sealer. Eventually he was able to complete the release the adhesions of the anterior peritoneal surface of the mesentery of the sigmoid colon to the posterior wall of the uterus. There was some bleeding which was controlled with the vessel sealer. Once all the sigmoid colon was freed he continued to lyse some adhesions of the epiploic appendages of the distal sigmoid colon to the lateral pelvic sidewall with vessel sealer. At this point we then turned the procedure back over to Dr. Gamble where he proceeded to perform the robotic assisted laparoscopic hysterectomy. The details his portions of his procedure can be found in his formal dictated operative note. The patient was left in the operating room under general endotracheal anesthesia stable under the care Dr. Gamble. Estimated blood loss during the abdominal pelvic adhesiolysis was approximately 100cc. Implants None Estimated Blood Loss 100 Drains No Packing No Pathology None sent Complications No immediate complications Condition Stable Disposition Other (Patient was left in the operating room under general endotracheal anesthesia under the care of Dr. Gamble to finish his robotic assisted laparoscopic hysterectomy.) [facility] Billing Surgery - Charge Forward: Surgery Billing
--- NOTE | 2025-05-01 16:39 | S_PTH ---
PATIENT: Mellissa Diehl LOC: [facility] U#:[id number] AGE/SX: 44/F ROOM: RE05/01/[address]: Daniel Gamble MD : 1980 BED: DIS: 05/02/2025 SPEC #: [id number] RECD: 05/02/25 08:06 STATUS: HARDEEP REMontse #: [id number] KARAN: 05/01/25 16:[address]: Daniel Gamble DEPT: [facility] Surgical RECD BY: Pilar Marie ENTERED: 05/02/25 08:06 SP TYPE: Surgical OTHR DR: Misty Lai, ACID WASHER OPERATOR Tissues: A - Uterus Procedures: Hematoxylin and Eosin Stain Gross and Microscopic Level 5
[2025-05-01] MEDS: METHYLENE BLUE 0.5% INJ 10 ML AMPULE IV PUSH (17:00)
--- NOTE | 2025-05-01 17:34 | P.OP_ITS ---
Procedure Note - Detailed Date of Procedure 05/01/25 Pre-op Diagnosis Menorrhagia with reg cycle, Rt ovarian cyst Post-op Diagnosis Same Procedure Performed Robot assisted Total hysterectomy with bilateral salpingectomy with left oophorectomy. Surgeon Daniel Gamble MD Anesthesia General Indications heavy vaginal bleeding, pelvic pain Findings Extensive adhesions between the small intestine the anterior abdominal wall. Adhesions between sigmoid colon and left adnexa along with adhesions between the rectum and the posterior uterus. Scarring throughout the pelvic structures. Adhesions between the uterus and anterior abdominal wall/pelvis. Description of Procedure This patient was taken to the operating room. She was prepped and draped in the dorsal lithotomy position after induction of general anesthesia. The uterine manipulator and Madeline cup were placed. This was done with a speculum and tenaculum. The speculum was placed. The cervix was grasped with a tenaculum. The stay sutures were placed at 3 and 9:00 a.m.. The stay sutures of 0 Vicryl were tied to the appropriately Size scope after it was slipped around the cervix.. The tip of the THAIS manipulator was placed in the intrauter ine cavity. The cup was slid into place around the cervix and into the fornices. It was locked into place. The sutures were then wrapped around the handle and tied under tension. A 8 mm skin incision was made in the left upper quadrant the abdomen. a 5 mm Visiport trocar was inserted into abdominal cavity and pneumoperitoneum was achieved. A 8 mm supraumbilical incision was made and a 8 mm trocar was inserted into the intrauterine cavity under direct visualization of the scope. an 8 mm incision was made in the right upper quadrant of the abdomen and an 8 mm robotic trocar was placed the inter uterine cavity under direct visualization the scope. An 11 mm trocar was inserted in the right upper quadrant of the abdomen rectal is a cystoscope after an incision was made there as well. The robot was docked. Electronic Orientation of the robot was performed. The abdomen was examined and extensive adhesions were present. Adhesions between small intestine the anterior abdominal wall. The sigmoid colon and rectum to the uterus and pelvic structures. General surgery was called and they performed extensive adhesiolysis. Please see their operative report for details. The hysterectomy portion of the procedure was resumed after adhesiolysis. Bilateral ureteral lysis was performed. This was done from the pelvic brim down to the uterine artery. This was done with careful dissection using sharp and blunt dissection. The fallopian tubes were removed bilaterally. The mesosalpinx around the fallopian tubes were cauterized transected with LigaSure cautery. This was done in a bilateral fashion from the ovary to the uterine cornua. The fallopian tube was transected at the uterine cornu and amputated. The tube was taken out the left lower quadrant trocar site. In a stepwise fashion along the lateral aspects of the uterus the round ligament and broad ligaments were cauterized transected down to the level of the uterine arteries. A bladder flap was created in the bladder was moved distally to the end of the cervix and over the Madeline cup. The bilateral uterine arteries were cauterized and transected. Left ovary was removed. The infundibulopelvic ligament was cauter ized and transected with the LigaSure cautery. The ovaries have placed in the posterior cul-de-sac. Colpotomy was then performed. In a circumferential fashion the vagina was transected using unipolar cautery. The incision was made down on the Madeline cup. The uterus and cervix, fallopian tubes and left ovary were taken out through the vagina. A pneumo occluder was placed in the vagina. The vaginal cuff was closed with a 0 V lock suture in a running fashion. The pelvis was irrigated with copious amounts antibiotic irrigation. The ureters were again examined and found to be intact and flowing freely under the uterine arteries into the bladder. The bladder was intact. It was examined directly. Cystoscopy was performed after administration of methylene blue. The cystoscope was inserted. Bladder was distended with fluid. The ureteric meatus was observed bilaterally. Blue fluid was seen to egress bilaterally. The bladder was drained and the cystoscope was withdrawn. The vagina was irrigated with Betadine solution after removal of the Pneumo occluder. the trocars were removed after the robot was undocked. The skin was closed with subacute or Dermabond. The patient was taken to recovery room. She was stable condition. Sponge lap and needle counts were correct x2. Estimated Blood Loss 125 Urine Output 800 Drains Yes Packing No Pathology Yes Complications No immediate complications Condition Stable Disposition Floor
[2025-05-01] MEDS: fentaNYL CITRATE INJ (*CRX) 100 MCG/2 ML VIAL 25 MCG IV PUSH ×4 (18:01→18:14)
[2025-05-01] MEDS: ONDANSETRON INJ 4 MG/2 ML VIAL IV PUSH (18:09)
[2025-05-01] MEDS: DEXTROSE 5%/0.45% SOD CHL 1,000 ML 125 ML IV CONT (19:09)
[2025-05-01] MEDS: PROMETHAZINE HCL 25 MG/ML AMPUL 12.5 MG IV PUSH (19:35)
[2025-05-01] MEDS: KETOROLAC 30 MG/ML VIAL (*BKC) IV PUSH (20:40)
[2025-05-01] MEDS: metroNIDAZOLE 500 MG/ISO 100ML 500 MG/100 ML BAG 100 MG IVPB (20:40)
[2025-05-02 00:20] VITALS: BP 129/51; PULSE 67; RESP 16; TEMP 36.6; O2SAT 99
[2025-05-02] MEDS: metroNIDAZOLE 500 MG/ISO 100ML 500 MG/100 ML BAG 100 MG IVPB ×2 (02:40→09:01)
[2025-05-02] MEDS: KETOROLAC 30 MG/ML VIAL (*BKC) IV PUSH ×2 (02:40→08:57)
[2025-05-02 03:45] VITALS: BP 130/71; PULSE 70; RESP 16; TEMP 36.7; O2SAT 99
[2025-05-02] MEDS: DEXTROSE 5%/0.45% SOD CHL 1,000 ML 125 ML IV CONT (03:50)
[2025-05-02] MEDS: ceFAZolin 2 GM in SODIUM CHLORIDE 0.9% IV 50 ML 100 ML IVPB (05:45)
[2025-05-02 08:45] VITALS: BP 123/62; PULSE 81; RESP 18; TEMP 37.2; O2SAT 99
--- NOTE | 2025-05-02 08:49 | WPDANESPN ---
Anes - Prog Note Post-Op Date/Time: 05/02/25 08:49 Cardiovascular status: normal Respiratory status: normal Airway patency: baseline Mental status: baseline Post-Op hydration status: normal Vital Signs: Last Vital Signs Temp 36.7 C 05/02/25 03:45 Pulse 70 05/02/25 03:45 Resp 16 05/02/25 03:45 BP 130/71 05/02/25 03:45 Pulse Ox 99 05/02/25 03:45 O2 Del Method Room Air 05/02/25 03:45 O2 Flow Rate 8 05/01/25 17:50 Pain Score (VAS): 2 I/O: Intake & Output 05/01/25 05/02/25 05/02/25 23:59 07:59 15:59 Intake Total 650 1000 Output Total 870 1400 Balance -220 -400 05/01/25 10:42 Beta HCG, Quant < 2.39 Post-procedural complaints: none Patient Feedback: Patient satisfied with anesthetic care.
[2025-05-02] MEDS: ACETAMINOPHEN 500 MG TABLET 1000 MG PO ×2 (09:02→15:09)
[2025-05-02] MEDS: SIMETHICONE 80 MG TAB.CHEW PO (09:02)
[2025-05-02] MEDS: DOCUSATE SODIUM 100 MG CAPSULE PO (09:02)
--- NOTE | 2025-05-02 10:11 | PM.GYNPNOP ---
FASHION CONSULTANT SELLING - A/P Postoperative Procedures: Procedures Operation Date: 05/01/25 12:00 Actual Procedure Side Surgeon p Robotic Assisted Hysterectomy, Right Laparoscopic Ovarian Cystectomy, Left Laparoscopic Oophorectomy, Extensive Robotic Assisted Laparoscopic Abdominal and pelvic adhesiolysis Right Daniel Gamble MD Postoperative day: 1 Postoperative status: doing well Postoperative plan: see orders Time Spent With Patient Time: Total time spent is greater than 50% in coordination of care (as documented) at patient's floor/unit and/or counseling patient: Time with patient: less than 15 minutes FASHION CONSULTANT SELLING- PN:Subj Post-Op Subjective Date/time seen: 05/02/25 10:11 Subjective: patient reports feeling better, patient has no complaints and pain is well controlled Exam Const: General: healthy appearing, comfortable and no acute distress Resp: Auscultation: clear to auscultation bilaterally, no rales, no rhonchi and no wheezes Cardio: Rate: regular rate Heart sounds: no click, no murmurs and no rubs GI: Inspection: non-distended Auscultation: normal bowel sounds Extrem: General: normal to inspection, no pedal edema and no calf tenderness FASHION CONSULTANT SELLING - PN: Obj Data Vital Signs Vital Signs: Vital Signs - 24 hr 05/01/25 11:30 05/01/25 17:36 05/01/25 17:50 Temperature 98.1 F 97.0 F L Pulse Rate 77 87 79 Respiratory Rate 16 17 15 Blood Pressure 143/95 H 136/81 124/72 Pulse Oximetry 100 100 100 Oxygen Delivery Room Air Simple Face Mask Simple Face Mask Oxygen Flow Rate 8 8 05/01/25 18:05 05/01/25 18:20 05/01/25 18:35 Temperature Pulse Rate 72 69 78 Respiratory Rate 12 12 18 Blood Pressure 117/57 L 127/61 125/67 Pulse Oximetry 100 100 98 Oxygen Delivery Room Air Room Air Room Air Oxygen Flow Rate 05/01/25 19:00 05/01/25 19:00 05/02/25 00:20 Temperature 98.4 F 97.9 F Pulse Rate 68 67 Respiratory Rate 14 16 Blood Pressure 138/75 129/51 L Pulse Oximetry 100 99 Oxygen Delivery Room Air Oxygen Flow Rate 05/02/25 00:20 05/02/25 03:45 05/02/25 03:45 Temperature 98.0 F Pulse Rate 70 Respiratory Rate 16 Blood Pressure 130/71 Pulse Oximetry 99 Oxygen Delivery Room Air Room Air Oxygen Flow Rate Intake/Output Intake/Output: Intake & Output 04/29/25 04/30/25 05/01/25 05/02/25 23:59 23:59 23:59 23:59 Intake Total 1400 1100 Output Total 870 1400 Balance 530 -300 Meds/Results Medications: Active Medications Generic Name Dose Route Start Last Admin Trade Name Freq PRN Reason Stop Dose Admin Acetaminophen 1,000 mg 05/01/25 18:40 05/02/25 09:02 Acetaminophen 500 Mg Tablet PO 1,000 mg Q6HR SU Administration Docusate Sodium 100 mg 05/02/25 09:00 05/02/25 09:02 Docusate Sodium 100 Mg Capsule PO 100 mg BID SU Administration Dextrose/Sodium Chloride 1,000 mls @ 125 mls/hr 05/01/25 18:40 05/02/25 03:50 Dextrose 5% Sodium Chloride 0.45% IV CONT 125 mls/hr .Q8H SU Administration Metronidazole 500 mg in 100 mls @ 100 mls/hr 05/01/25 18:40 05/02/25 09:01 Flagyl 500 Mg/Iso Soln 100 Ml IVPB 100 mls/hr Q6HR SU Administration Cefazolin Sodium 2 gm/ Sodium 50 mls @ 100 mls/hr 05/01/25 20:00 05/02/25 05:45 Chloride IVPB 100 mls/hr Q8H SU Administration Ibuprofen 600 mg 05/02/25 12:00 Ibuprofen 600 Mg Tablet PO Q6HR SU Naloxone HCl 0.1 mg 05/01/25 18:40 Naloxone Hcl 0.4 Mg/Ml Vial IV PUSH Q2M PRN Respiratory rate less than 10 Ondansetron HCl 4 mg 05/01/25 18:40 Ondansetron Inj 4 Mg/2 Ml Vial IV PUSH Q6H PRN Nausea And Vomiting Oxycodone HCl 5 mg 05/01/25 18:40 Oxycodone Hcl (*Crx) 5 Mg Tab Ir PO Q4H PRN Pain Rated 4-6 Oxycodone HCl 10 mg 05/01/25 18:40 Oxycodone Hcl (*Crx) 5 Mg Tab Ir PO Q6H PRN Pain Rated 7-10 Simethicone 80 mg 05/02/25 08:00 05/02/25 09:02 Simethicone 80 Mg Tab.Chew PO 80 mg TIDWM SU Administration Labs Labs: Laboratory Results - last 24 hr 05/01/25 10:42 Beta HCG, Quant < 2.39
[2025-05-02 12:03] VITALS: BP 122/75; PULSE 73; RESP 16; TEMP 37.4; O2SAT 100
--- NOTE | 2025-05-02 13:40 | P.PNGS_ITS ---
Progress Note: A&P Assessment and Plan (1) Pelvic inflammatory disease: Code(s): N73.9 - Female pelvic inflammatory disease, unspecified Status: Acute Assessment and Plan: POD1 s/p robot assisted total hysterectomy with bilateral salpingectomy with left oophorectomy; extensive robot assisted laparoscopic abdominal and pelvic adhesiolysis of 3 hours. Patient is doing well today. Tolerating regular diet. Still has urethral catheter in. This can be removed when ok with publication specialist. Abdominal pain tolerable. Patient has not needed any narcotic pain medication. Continue antibiotics per publication specialist recs. Surgically stable for discharge when ok with Dr. Gamble. No need for follow up with general surgery team unless issues arise. (2) Tubal ovarian abscess: Code(s): N70.93 - Salpingitis and oophoritis, unspecified Status: Acute Plan Discussed patient's case and plan of care with Dr. Shipley. Subjective Subjective Date/Time Seen: 05/02/25 13:40 Post Op day: 1 (robot assisted total hysterectomy with bilateral salpingectomy with left oophorectomy; extensive robot assisted laparoscopic abdominal and pelvic adhesiolysis) Patient reports: no new complaints, feels better, tolerating a regular diet, no flatus and no bowel movement Interval history: Patient doing well today. Complains of some abdominal pain, as expected. No nausea or vomiting. Tolerating small amount of regular diet. Exam GI: Inspection: non-distended GI Palp: Yes Soft to palpation, Yes Tenderness to palpation present (GI) (mild diffuse tenderness to palpation), No Guarding due to palpation present (GI) and No Hernia present Auscultation: normal bowel sounds Psych: Mental Status: mental status grossly normal Objective Data Vital Signs Vital Signs: Vital Signs - 24 hr 05/01/25 17:36 05/01/25 17:50 05/01/25 18:05 Temperature 97.0 F L Pulse Rate 87 79 72 Respiratory Rate 17 15 12 Blood Pressure 136/81 124/72 117/57 L Pulse Oximetry 100 100 100 Oxygen Delivery Simple Face Mask Simple Face Mask Room Air Oxygen Flow Rate 8 8 05/01/25 18:20 05/01/25 18:35 05/01/25 19:00 Temperature 98.4 F Pulse Rate 69 78 68 Respiratory Rate 12 18 14 Blood Pressure 127/61 125/67 138/75 Pulse Oximetry 100 98 100 Oxygen Delivery Room Air Room Air Oxygen Flow Rate 05/01/25 19:00 05/02/25 00:20 05/02/25 00:20 Temperature 97.9 F Pulse Rate 67 Respiratory Rate 16 Blood Pressure 129/51 L Pulse Oximetry 99 Oxygen Delivery Room Air Room Air Oxygen Flow Rate 05/02/25 03:45 05/02/25 03:45 05/02/25 08:45 Temperature 98.0 F 99 F Pulse Rate 70 81 Respiratory Rate 16 18 Blood Pressure 130/71 123/62 Pulse Oximetry 99 99 Oxygen Delivery Room Air Oxygen Flow Rate 05/02/25 12:03 Temperature 99.3 F Pulse Rate 73 Respiratory Rate 16 Blood Pressure 122/75 Pulse Oximetry 100 Oxygen Delivery Oxygen Flow Rate Intake/Output Intake/Output: Intake & Output 04/29/25 04/30/25 05/01/25 05/02/25 23:59 23:59 23:59 23:59 Intake Total 1400 1100 Output Total 870 4350 Balance 530 -3250 Meds/Results Medications: Active Medications Generic Name Dose Route Start Last Admin Trade Name Freq PRN Reason Stop Dose Admin Acetaminophen 1,000 mg 05/01/25 18:40 05/02/25 09:02 Acetaminophen 500 Mg Tablet PO 1,000 mg Q6HR SU Administration Docusate Sodium 100 mg 05/02/25 09:00 05/02/25 09:02 Docusate Sodium 100 Mg Capsule PO 100 mg BID SU Administration Dextrose/Sodium Chloride 1,000 mls @ 125 mls/hr 05/01/25 18:40 05/02/25 03:50 Dextrose 5% Sodium Chloride 0.45% IV CONT 125 mls/hr .Q8H SU Administration Metronidazole 500 mg in 100 mls @ 100 mls/hr 05/01/25 18:40 05/02/25 09:01 Flagyl 500 Mg/Iso Soln 100 Ml IVPB 100 mls/hr Q6HR SU Administration Cefazolin Sodium 2 gm/ Sodium 50 mls @ 100 mls/hr 05/01/25 20:00 05/02/25 05:45 Chloride IVPB 100 mls/hr Q8H SU Administration Ibuprofen 600 mg 05/02/25 12:00 Ibuprofen 600 Mg Tablet PO Q6HR SU Naloxone HCl 0.1 mg 05/01/25 18:40 Naloxone Hcl 0.4 Mg/Ml Vial IV PUSH Q2M PRN Respiratory rate less than 10 Ondansetron HCl 4 mg 05/01/25 18:40 Ondansetron Inj 4 Mg/2 Ml Vial IV PUSH Q6H PRN Nausea And Vomiting Oxycodone HCl 5 mg 05/01/25 18:40 Oxycodone Hcl (*Crx) 5 Mg Tab Ir PO Q4H PRN Pain Rated 4-6 Oxycodone HCl 10 mg 05/01/25 18:40 Oxycodone Hcl (*Crx) 5 Mg Tab Ir PO Q6H PRN Pain Rated 7-10 Simethicone 80 mg 05/02/25 08:00 05/02/25 09:02 Simethicone 80 Mg Tab.Chew PO 80 mg TIDWM SU Administration
== END 2025-05-02 16:03 | disposition home or self-care (01) ==
LOC: ANHSURGERY 11:55 → ANHOB2 18:58
PROVIDERS: Anesthesiology; PCP Registered Nurse; Visit Provider Obstetrics & Gynecology
PROC: (CPT 58571; principal; 2025-05-01 12:00)
DX: N73.6 Female pelvic peritoneal adhesions (postinfective) (principal); N88.8 Other specified noninflammatory disorders of cervix uteri; N83.02 Follicular cyst of left ovary; N92.0 Excessive and frequent menstruation with regular cycle; D25.1 Intramural leiomyoma of uterus; D25.2 Subserosal leiomyoma of uterus; R10.20 Pelvic and perineal pain unspecified side; F17.290 Nicotine dependence, other tobacco product, uncomplicated
CPT/HCPCS: 58571; S2900; 36415; 84702; 88307; 99199; J0690; A9270; J1100; J1171; J1200; J1836; J1885; J2003; J2250; J2405; J2550; J2704; J3010; J7030; J7120; Q9968